=== PATIENT | female | born 1965 | race Caucasian/White ===

== ENCOUNTER 2018-09-17 17:31 | Emergency (ER) | payer OTHER, SELFPAY ==
[2018-09-17 17:38] VITALS: BP 92/47; PULSE 72; RESP 16; TEMP 36.8; O2SAT 97
--- NOTE | 2018-09-17 17:59 | ED.GENADUL_ITS ---
Discharge Plan Disposition Patient Disposition: HOME Condition: Stable Discharge Details Chief Complaint: Allergic Clinical Impression: Bite or sting by insect, Hypersensitivity reaction Primary Care Provider: Dawson Stephens ED Provider: Vikas Prado Home Meds and New Rx's Prescriptions: No Action meloxicam 15 mg Tablet 15 mg PO PRN PRNRF: 0 Discharge Instructions Instructions: Insect Bite or Sting (ED) Additional Instructions: Continue to apply ice and keep extremity elevated. You may continue to use Benadryl 1 to 2 tablets every 4 hours as needed for itching continue to monitor site of insect bite or sting. Return immediately to the emergency department for any new or significant worsening of symptoms, difficulty breathing or swelling to your lips tongue face or mouth. Otherwise you may follow-up with your primary care provider as needed Referrals: Primary Care Provider [Outside] (As needed for reassessment) Discharge Data Discharge Date/Time-TO BE ENTERED AT DEPARTURE: 09/17/18 18:13 Medical Decision Making Bee sting right lower extremity, immediate redness and swelling after it occurred which redness and swelling has continued throughout today. Patient states that itching and on fire and due to swelling she has noted some sensation of numbness tingling to her toes. Physical exam shows moderate non-pitting edema to the right lower ankle with surrounding erythema. Patient does have sensation and cap refill is intact distal to area of insect bite or sting. Patient is unsure of what stung or bit her. Patient has no systemic symptoms. Given clinical course I doubt this is infected but more a hypersensitivity reaction to either a sting or possibly a black fly bite given amount of swelling and edema. I do not feel that patient needs epinephrine at this time but steroid course would be of benefit. Patient was encouraged to continue to apply ice, use Benadryl, and was given single dose of Zantac in the emergency department. Return precautions were discussed after discussion of diagnosis and plan of care patient has no further needs, questions, or concerns and states clear understanding to return to the emergency department for any worsening symptoms. HPI General Mode of arrival: ambulatory . Date/Time Provider Initiated Documentation: 09/17/18 17:37 . Limitations to Documentation: no limitations . Information obtained by: patient and RN notes reviewed . History of Present Illness 53 year old F presents to the emergency department with the chief complaint of bee sting / bug bite right ankle , described as moderate, with intensity rated at 6. Quality is described as aching, and is localized to the right and lower extremity. Patient started experiencing this day(s) (1) and it has been constant. Patient notes no other symptoms.. Patient did receive the following treatments prior to arrival, other (3 doses of Benadryl) Related Data Home Medications Medication Instructions Recorded Confirmed meloxicam 15 mg PO PRN PRN 09/17/18 09/17/18 Allergies Allergy/AdvReac Type Severity Reaction Status Date / Time No Known Allergies Allergy Unverified 09/17/18 17:42 General Stated Complaint: Allergic ALPA: 4 Review of Systems Constitutional Denies fever(s) ENT Denies lip swelling, Denies throat swelling and Denies tongue swelling Cardiovascular Denies chest pain and Denies dyspnea Respiratory Denies dyspnea Integumentary/Breasts Reports as per HPI Allergic/Immunologic Denies lip swelling, Denies throat swelling and Denies tongue swelling [facility] Medical History (Updated 09/17/18 @ 17:42 by Valerie Chung) Herniated nucleus pulposus, L4-5 (Acute) Social History Smoking/Tobacco Use Status: Current every day Alcohol Intake: never Drug use: Never Substance use type: does not use Do you feel safe at home: Yes Do you feel safe in your relationship?: Yes Exam Const General: cooperative, no acute distress and not ill appearing Orientation: alert, awake and oriented x3 HENMT Face and sinus: normal facial exam Resp Effort & Inspection: normal respiratory effort, able to speak in complete sentences and no respiratory distress Cardio Rate: regular rate Rhythm: regular rhythm Heart Sounds: S1 normal and S2 normal Extrem General: normal exam except as noted Right lower extremity: lower leg Details: normal to inspection; no erythema and no tenderness, ankle Details: swelling Details: diffusely and normal ROM; no unusual warmth and foot Details: normal capillary refill, normal to inspection and toes with normal ROM Course Vital Signs Temperature 36.8 C 09/17/18 17:38 Pulse 72 09/17/18 17:38 Respiratory Rate 16 09/17/18 17:38 Blood Pressure 92/47 L 09/17/18 17:38 Pulse Oximetry 97 09/17/18 17:38 Temperature 36.8 C 09/17/18 17:38 Pulse 72 09/17/18 17:38 Respiratory Rate 16 09/17/18 17:38 Respiratory Effort Non-Labored 09/17/18 17:41 Blood Pressure 92/47 L 09/17/18 17:38 Pulse Oximetry 97 09/17/18 17:38 Pain Level 6 09/17/18 17:38
[2018-09-17] MEDS: predniSONE 20 MG TAB 40 MG PO (18:13)
== END 2018-09-17 18:13 | disposition home or self-care (01) ==
PROVIDERS: Emergency Provider Nurse Practitioner Family
DX: T63.441A Toxic effect of venom of bees, accidental (unintentional), initial encounter (principal); L29.8 Other pruritus; R60.9 Edema, unspecified
CPT/HCPCS: 99283; J7512

== ENCOUNTER 2020-06-30 08:33 | Emergency (ER) | payer OTHER, SELFPAY ==
[2020-06-30 08:38] VITALS: BP 116/73; PULSE 72; RESP 16; TEMP 36.4; O2SAT 98
--- NOTE | 2020-06-30 08:45 | DI.RAD_ITS ---
Exam(s) XR FOOT RT COMPLETE EXAM: XR FOOT RT COMPLETE CLINICAL HISTORY: stepped on by horse. TECHNIQUE: 2D digital imaging was performed. COMPARISON: No exams were available for comparison FINDINGS: No evidence of obvious fractures nor diastasis of the Lisfranc joint. However, on the oblique view t here is a subtle transverse linear lucency at the base of the 3rd metatarsal which may represent a no ndisplaced fracture at this site. No other fractures identified. Tiny inferior calcaneal spur is no darryn. Hallux valgus evident. IMPRESSION: Possible subtle nondisplaced fracture base of the 3rd metatarsal. Correlation with site of tendernes s is recommended. DATA REPOSITORY: RADIATION DOSE DELIVERED:
--- NOTE | 2020-06-30 08:45 | DI.RAD_ITS ---
Exam(s) XR TIB/FIB RT EXAM: XR TIB/FIB RT CLINICAL HISTORY: kicked by horse. TECHNIQUE: 2D digital imaging was performed. COMPARISON: No exams were available for comparison FINDINGS: There is no evidence of acute fracture nor dislocation. No widening of the ankle mortise. Small inf erior calcaneal spur is noted. Dermal/subdermal calcifications are noted anteriorly in the calf. IMPRESSION: DATA REPOSITORY: RADIATION DOSE DELIVERED:
--- NOTE | 2020-06-30 08:58 | ED.GENADUL_ITS ---
Discharge Plan Disposition Patient Disposition: HOME Condition: Stable Discharge Details Clinical Impression: Contusion of foot, Contusion of right lower leg Primary Care Provider: Kat,Local ED Provider: Octaviano Méndez Home Meds and New Rx's Prescriptions: Continued pregabalin 25 mg capsule 25 mg PO BID RF: 0 Discharge Instructions Instructions: Contusion in Adults (ED), Foot Contusion (ED) Additional Instructions: X-ray of your foot and tib-fib did not reveal any obvious fracture or dislocation. You do have some degenerative changes at the base of your first toe. Splinting and crushing was declined. I recommend using [id number] Tylenol and/or Motrin as directed for discomfort. Rest, elevate, cool and/or warm compresses every 2 hours for 20 days. Please watch for new or worsening symptoms and return to the ER for any concerns. Medical Decision Making 55-year-old female who was stepped on and kicked in the right lower extremity by a horse 8 days ago. Reports pain swelling and ecchymosis. Denies numbness, tingling, weakness. Clinically this appears to be a contusion. She has only been intermittently taking anti-inflammatory medication. She has been weightbearing the entire time. Discussed options. Will obtain x-ray of tib-fib as well as the foot. Ankle appears slightly ecchymotic this is likely from the contusion over the tib-fib, ankle is nontender. Neuro, vascular, tendon intact. Normal dorsalis pedal pulse and capillary refill. Negative Homans' sign. X-ray of right tib-fib reviewed by me and confirmed by radiology as negative. X-ray of right foot reveals mild degenerative changes at the first MTP joint, no fracture. Discussed x-ray findings with patient. She is relieved. Declined splinting or crutches. We discussed conservative therapy, resting, [id number] anti- inflammatory medication, cool and/or warm compresses. Standard discharge and return precautions given. Medical Records Medical records reviewed: Yes I reviewed the patient's medical records. HPI General Mode of arrival: ambulatory . Date/Time Provider Initiated Documentation: 06/30/20 08:34 . Limitations to Documentation: no limitations . Information obtained by: patient . HPI Narrative: This is a 55-year-old female, past medical history that includes herniated disc at L4-L5, presents for right lower leg and foot injury that occurred last Wednesday. She states that her foot was stepped on by a horse and then she was subsequently kicked in the lower leg. At the time she did not notice significant pain but did notice moderate swelling, bruising. Denies any other injury. Denies numbness, tingling, weakness. She states 3 days ago she had increased pain at the site where she was kicked. Reports that she has pain in her foot with dorsi and plantar flexion. She has taken Motrin at bedtime over the past couple of nights. Denies any calf pain or swelling. No history of DVT or PE. No chest pain or shortness of breath. Patient states the pain is mild to moderate at rest, worse with movement or ambulation. She states that the pain is worse at the site of the initial kicking, distal anterior tibia, and in the webbing between her first and second toe. Reports that the ankle is not painful, there is no initial swelling or ecchymosis across the ankle but over the time, gravity has pulled swelling and ecchymosis down. Related Data Home Medications Medication Instructions Recorded Confirmed pregabalin 25 mg PO BID 06/30/20 06/30/20 Allergies Allergy/AdvReac Type Severity Reaction Status Date / Time No Known Allergies Allergy Unverified 06/30/20 08:44 General Stated Complaint: Orthopedic ALPA: 4 Review of Systems Constitutional Constitutional: Denies fever(s) and Denies weakness Cardiovascular Cardiovascular: Denies chest pain and Denies dyspnea Respiratory Respiratory: Denies dyspnea Musculoskeletal Musculoskeletal: Denies deformity, Denies arthralgias, Denies numbness, Reports stiffness and Denies tingling Integumentary/Breasts Skin/Breast: Denies erythema Neurologic Neurologic: Denies numbness, Denies tingling and Denies weakness [facility] Medical History Herniated nucleus pulposus, L4-5 Social History Smoking/Tobacco Use Status: Former Tobacco Use Smoking risk assessment performed?: Yes Alcohol Intake: current Alcohol Intake frequency: holidays/special occasions only Drug use: Never Substance use type: does not use Do you feel safe at home: Yes Do you feel safe in your relationship?: Yes Exam Const General: cooperative, healthy appearing, comfortable and no acute distress Orientation: alert and awake [facility] Head: normal to inspection, normocephalic and atraumatic Eyes General: appearance normal, both eyes and all related structures Conjunctivae: conjunctivae normal Neck Neck: normal visual inspection, trachea midline and supple Resp Effort & Inspection: normal respiratory effort and able to speak in complete sentences Cardio Rate: regular rate Rhythm: regular rhythm Skin General skin exam: no rashes or lesions noted Neuro General: patient alert, patient awake, moves all extremities and no focal motor deficits Cognition: normal cognition Speech: speech normal Gait: antalgic (Minimally) Motor: muscle tone normal throughout and strength 5/5 throughout Sensory Exam: no sensory deficits noted Extrem General: full ROM and capillary refill normal Right lower extremity: normal capillary refill, hip/thigh Details: normal to inspection and normal ROM; no tenderness and no swelling, knee Details: normal to inspection and normal ROM; no tenderness and no swelling, lower leg Details: tenderness and ecchymosis, ankle Details: ecchymosis; no tenderness and no swelling and foot Details: normal capillary refill, normal to inspection, tenderness, toes with normal ROM, no edema, ecchymosis and vascular exam Details: dorsalis pedis pulse present and normal capillary refill Upper/lower leg/hip images: 1. Contusion, tenderness. Skin intact. Ecchymosis and multiple stages of healing. Neuro, vascular, tendon intact. 2. Diffuse mild ecchymosis however there is no swelling or tenderness over the ankle whatsoever. Full dorsi and plantar flexion. Ankle/foot/toe images: 1. There is diffuse mild discomfort between the first and second toe and the webbing. Neuro, vascular, tendon intact. Skin intact. Normal capillary refill. Psych Appearance: grossly normal Mental Status: mental status grossly normal Course Vital Signs Vital signs: Vital Signs Temperature 36.4 C 06/30/20 08:38 Pulse 72 06/30/20 08:38 Respiratory Rate 16 06/30/20 08:38 Blood Pressure 116/73 06/30/20 08:38 Pulse Oximetry 98 06/30/20 08:38 Temperature 36.4 C 06/30/20 08:38 Temperature Source Skin 06/30/20 08:38 Pulse 72 06/30/20 08:38 Respiratory Rate 16 06/30/20 08:38 Respiratory Effort 06/30/20 08:38 Blood Pressure 116/73 06/30/20 08:38 Blood Pressure Position Sitting 06/30/20 08:38 Pulse Oximetry 98 06/30/20 08:38 Oxygen Delivery Method Room Air 06/30/20 08:38 Oxygen Flow Rate 0 06/30/20 08:38 Pain Level 8 06/30/20 08:50
--- NOTE | 2020-06-30 09:52 | DI.VRAD_ITS ---
PROCEDURE INFORMATION: Exam: XR Right Foot Exam date and time: 06/30/2020 8:58 AM Age: 55 years old Clinical indication: Pain; Right; Patient HX: Trauma, horse stepped on foot TECHNIQUE: Imaging protocol: XR Right foot. Views: 3 or more views. COMPARISON: No relevant prior studies available. FINDINGS: Bones/joints: No acute fracture. Mild degenerative changes of the 1st metatarsophalangeal joint. Mild hallux valgus and bunion deformity. No ankle joint effusion. Soft tissues: Unremarkable. IMPRESSION: 1. Mild bunion deformity. 2. Mild hallux valgus. 3. Mild degenerative changes at the 1st metatarsophalangeal joint. 4. No acute fracture. Dictated and Authenticated by: Vaughn Gimenez MD. Ordering:GISEL Brumfield MD
--- NOTE | 2020-06-30 10:01 | DI.VRAD_ITS ---
PROCEDURE INFORMATION: Exam: XR Right Tibia and Fibula Exam date and time: 06/30/2020 8:58 AM Age: 55 years old Clinical indication: Pain; Right; Patient HX: Lower leg bruise. Blunt trauma TECHNIQUE: Imaging protocol: XR Right tibia and fibula. Views: 2 views. COMPARISON: No relevant prior studies available. FINDINGS: Bones/joints: Normal. Soft tissues: Dermal calcifications. IMPRESSION: No acute findings. Dictated and Authenticated by: Vaughn Gimenez MD. Ordering:GISEL Brumfield MD
== END 2020-06-30 10:09 | disposition home or self-care (01) ==
PROVIDERS: Emergency Provider Physician Assistant
DX: S80.11XA Contusion of right lower leg, initial encounter (principal); W55.12XA Struck by horse, initial encounter
CPT/HCPCS: 99284; 73590; 73630; 99283

== ENCOUNTER 2021-01-02 14:58 | Outpatient (CLI) | payer OTHER, SELFPAY ==
--- NOTE | 2021-01-02 11:50 | DI.RAD_ITS ---
Exam(s) XR LUMBAR SPINE AP, LAT EXAM: XR LUMBAR SPINE AP, LAT CLINICAL HISTORY: vertebral alignment M54.50 LOW BACK PAIN. TECHNIQUE: 2D digital imaging was performed. COMPARISON: No exams were available for comparison FINDINGS: AP and lateral views of the lumbosacral spine reveal 5 vertebrae of lumbar configuration with no evid ence of fracture, listhesis, or pars defects. No scoliosis. There is disc space fusion device at L5-S1 level. Appears to be in satisfactory position. No retropu lsion. Disc space is maintained at this level and levels above. Mild facet joint degenerative tomas es. Sacroiliac joints appear unremarkable here. Visualized hip joint spaces appears normal. No osse ous lesions. Bone density is age-appropriate. IMPRESSION: Satisfactory appearance. DATA REPOSITORY: RADIATION DOSE DELIVERED:
== END 2021-01-02 15:18 ==
PROVIDERS: PCP Family Medicine; Visit Provider Nurse Practitioner Family
DX: M54.59 Other low back pain (principal); Z98.890 Other specified postprocedural states
CPT/HCPCS: 72100

== ENCOUNTER 2021-01-27 09:50 | Outpatient (CLI) | payer OTHER, SELFPAY ==
--- NOTE | 2021-01-27 09:30 | DI.RAD_ITS ---
Exam(s) XR LUMBAR SPINE AP, LAT EXAM: XR LUMBAR SPINE AP, LAT CLINICAL HISTORY: follow up recent back surgery/fusion, chronic LBP, M54.50, G29.89. TECHNIQUE: 2D digital imaging was performed. COMPARISON: CR XR LUMBAR SPINE AP, LAT from 01/02/2021 FINDINGS: Again noted is an L5-S1 level disc space fusion device which appears to be in satisfactory position. No migration and no radiographic evidence of osteomyelitis. Appears similar to the prior radiograph s 01/02/2021. Disc space height is maintained at this level and there is no significant narrowing di sc spaces above this level. There is no scoliosis. Sacroiliac joints appear unremarkable. IMPRESSION: Stable appearance. DATA REPOSITORY: RADIATION DOSE DELIVERED:
== END 2021-01-27 10:10 ==
PROVIDERS: PCP Family Medicine; Visit Provider Family Medicine
DX: M54.59 Other low back pain (principal); G89.29 Other chronic pain; Z98.1 Arthrodesis status
CPT/HCPCS: 72100

== ENCOUNTER 2021-03-10 09:00 | Outpatient (CLI) | payer OTHER, SELFPAY ==
--- NOTE | 2021-03-10 | DI.RAD_ITS ---
Exam(s) XR LUMBAR SPINE AP, LAT EXAM: XR LUMBAR SPINE AP, LAT CLINICAL HISTORY: S/P LUMBAR SPINAL FUSION Z98.1. TECHNIQUE: 2D digital imaging was performed. COMPARISON: CR XR LUMBAR SPINE AP, LAT from 01/27/2021 FINDINGS: Again noted is an L5-S1 disc space fusion device which appears stable in position. No evidence encro achment upon spinal canal. Mild anterolisthesis of L4 upon L5 noted today's images, approximately 2 millimeters. No disc space narrowing at this level. No obvious facet arthropathy. IMPRESSION: Stable appearance of L5-S1 hardware. DATA REPOSITORY: RADIATION DOSE DELIVERED:
== END 2021-03-10 09:20 ==
PROVIDERS: PCP Family Medicine
DX: M43.17 Spondylolisthesis, lumbosacral region (principal); Z98.1 Arthrodesis status
CPT/HCPCS: 72100

== ENCOUNTER 2021-03-28 09:50 | Emergency (ER) | payer OTHER, SELFPAY ==
[2021-03-28] VITALS (19 sets, daily range): BP systolic 109–117; BP diastolic 57–72; PULSE 59–82; RESP 11–21; TEMP 36.5; O2SAT 96–99
--- NOTE | 2021-03-28 10:30 | RT.EKG_ITS ---
APPROVED REPORT Exam: Resting ECG Reason for Exam: palpitations Patient Location: E HR:68 bpm ECG Measurements Heart Rate 68 AXIS [place] 168 P 76 QRSd 71 QRS 36 QT 402 T 37 QTc 429 Conclusion Sinus rhythm...normal P axis, V-rate 60- 99
[2021-03-28 10:59] LABS: Abs Immature Grans 0.01 10^3/uL (0.0-0.06); Absolute Basophil Count 0.02 10^3/uL (0.0-0.2); Absolute Eosinophil Count 0.09 10^3/uL (0.0-0.7); Absolute Lymphocyte Count 3.28 10^3/uL (1.2-3.4); Absolute Monocyte Count 0.43 10^3/uL (0.1-0.8); Absolute Neutrophil Count 1.87 10^3/uL (1.2-6.7); Basophils % 0.4; Eosinophils % 1.6; HCT 43.3 % (36.0-46.0); HGB 14.3 g/dL (11.2-15.7); Immature Grans % 0.2; Lymphocytes % 57.5; MCH 30.8 pg (27.0-33.0); MCV 93.1 fL (80-95); MPV 8.9 fL (8.0-11.0); Monocytes % 7.5; Neutrophils % 32.8; Nucleated RBC 0 %; Platelet Count 292 10^3/uL (130-400); RBC 4.65 10^6/uL (3.93-5.22); RDW 12.2 % (11.7-14.6); RDW-SD 42.1 fL
[2021-03-28 11:21] LABS: ALT 23 U/L (14-59); AST 19 U/L (15-37); Albumin 3.8 g/dL (3.4-5.0); Alkaline Phosphatase 71 U/L (46-116); Anion Gap 6.9 mmol/L (3-11); BUN 15 mg/dL (7-18); Bilirubin, Total 0.4 mg/dL (0.2-1.0); CO2 27.1 mmol/L (21.0-32.0); CREATININE 0.8 mg/dL (0.55-1.02); Calcium 8.9 mg/dL (8.5-10.1); Chloride 106 mmol/L (98-107); Glucose 94 mg/dL (74-106); Magnesium 2.2 mg/dL (1.8-2.4); NT-proBNP 76 pg/mL (<300); Potassium 3.8 mmol/L (3.5-5.1); Sodium 140 mmol/L (136-145); TSH (W/Ref FT4) 1.31 uIU/mL (0.36-3.74); Total Protein 7.1 g/dL (6.4-8.2); Troponin I < 50 ng/L (<or=60)
--- NOTE | 2021-03-28 11:30 | DI.US_ITS ---
Exam(s) US EXTREMITY VENOUS BI EXAM: US EXTREMITY VENOUS BI CLINICAL HISTORY: Leg pain and swelling. TECHNIQUE: Bilateral lower extremity venous ultrasound performed using grayscale, color-flow, and sp ectral Doppler analysis. COMPARISON: No exams were available for comparison FINDINGS: The bilateral common femoral, femoral and popliteal veins demonstrate normal compressibility, augment ation, and color Doppler. The posterior tibial veins are patent. The saphenofemoral junctions are unr emarkable. There is a 5.2 x 2.5 x 3.8 cm complex fluid collection adjacent to the posterior medial le ft knee. This may represent a popliteal cyst. There is a 1.6 x 0.6 x 1.6 cm fluid collection in the right popliteal fossa likely reflecting a Patel cyst. The soft tissues are unremarkable. IMPRESSION: Right: Negative for DVT Left: Negative for DVT DATA REPOSITORY:
--- NOTE | 2021-03-28 11:30 | DI.CT_ITS ---
Exam(s) CT CHEST PE CTA EXAM: CT CHEST PE CTA CLINICAL HISTORY: palpations, elevated Dimmer. TECHNIQUE: Imaging Protocol: Axial CT angiography was performed with multi-slice acquisition and mu lti-planar and/or 3D reconstructions. CONTRAST MATERIAL: Intravenous: Omnipaque 350 Contrast volume:68 mL COMPARISON: No exams were available for comparison FINDINGS: There is poor inspiration. Tracheobronchial tree: Patent where visualized. Pulmonary parenchyma: Atelectatic changes are seen in the lungs due to low lung volumes and poor insp iration. No focal consolidating infiltrates. Pulmonary Arteries: No evidence of filling defect to suggest pulmonary emboli. Mediastinum and Candy: No dominant adenopathy or fluid collection. The esophagus is unremarkable. Visualized thyroid gland: Unremarkable. Pleura: No effusion or pneumothorax. Heart: The heart is not dilated. No coronary artery calcifications are seen. No pericardial effusion. Aorta: Thoracic aorta non-dilated. No evidence of dissection. Upper abdomen: Unremarkable. Soft tissues: Unremarkable. Bones: Within normal limits for the patient's age. IMPRESSION: 1. No evidence of pulmonary embolism, thoracic aortic dissection or aneurysm. 2. Results of this exam have been verbally communicated with provider. RADIATION DOSE DELIVERED: 375.38mGy.cm Total DLP DATA REPOSITORY: All CT scans at this facility are submitted to the National Radiology Data Registry (NRDR) Dose Index Registry (DIR) with the [employer] ([employer]). RADIATION OPTIMIZATION: All CT scans at this facility use at least one of these dose optimization te chniques: automated exposure control; mA and/or kV adjustment per patient size (includes targeted exa ms where dose is matched to clinical indication); or iterative reconstruction.
[2021-03-28 11:31] LABS: D-Dimer 559 ng/mlFEU (<500)
--- NOTE | 2021-03-28 12:02 | NUR.NOTE ---
Nursing Note: Pt to radiology via stretcher for exams with tech, no current complaints/acute distress noted at this time.
[2021-03-28] MEDS: Omnipaque 350 MG/ML 100 ML BTL 68 ML IJ (12:11)
--- NOTE | 2021-03-28 12:26 | NUR.NOTE ---
Nursing Note: Pt return from radiology, monitors continued, no new complaints, requesting lunch, provider notified, lunch ordered.
--- NOTE | 2021-03-28 13:14 | ED.GENADUL_ITS ---
Discharge Plan Disposition Patient Disposition: HOME Condition: Stable Discharge Details Clinical Impression: History of palpitations Primary Care Provider: Nasim Hamilton ED Provider: Vikas Prado Home Meds and New Rx's Prescriptions: Continued cyclobenzaprine 10 mg tablet 10 mg PO TID PRN (Reason: muscle spasm) 0RF pregabalin 50 mg capsule 50 mg PO HS 0RF Discharge Instructions Instructions: Heart Palpitations (ED) Additional Instructions: As discussed at this time we have not found any emergency findings with our ev aluation. If you have any new or worsening symptoms, return of your palpitations, or any change in your condition feel free to return to the emergency department for further evaluation. Otherwise it is recommended that you follow-up with your primary care provider for reassessment preferably in the next week. Referrals: Nasim Hamilton MD [Primary Care Provider] - Discharge Data Discharge Date/Time-TO BE ENTERED AT DEPARTURE: 03/28/21 13:55 Medical Decision Making Patient presenting to the emergency department for chief complaint of palpitations with activity and leg swelling. Patient was initially evaluated at primary care office which referred her to the emergency department. Patient rep orts elevated heart rate after exercise that lasted throughout the majority of the day and then subsided on its own. Patient is planing of bilateral leg pain from the calf radiating upwards. Patient did have surgery 3 months ago on her back. Physical exam shows well-appearing patient with no signs of acute distress. Normal cardiac and rest jean-claude exam. Patient does have mild to moderate tenderness of bilateral calves and proximal thighs. Plan to check labs including D-dimer. Review of labs is unremarkable except for elevated D-dimer. Given this I did order chest CTA for PE and lower extremity ultrasounds. Chest CT is negative for pulmonary embolism or acute findings. Lower extremity ultrasound show a basic Patel's cyst and some fluid collection which is more than likely due to avidity or injury but no signs of thrombosis is noted. I did discuss with patient these findings. At this time I do not feel that further evaluation is needed. Referred patient back to primary care provider and did consider Holter monitor but given that this single event happened more than 2 weeks ago with no other further reported event I feel that primary care can order cardiac monitoring if this occurs again. After discussion of diagnosis and plan of care patient has no further needs, questions, or concerns and states clear understanding to return to the emergency department for any worsening symptoms. Lab Data Labs: Laboratory Tests Range/Units 03/28/21 03/28/21 03/28/21 10:50 10:50 10:50 WBC (4.4-10.8) 10^3/uL 5.70 RBC (3.93-5.22) 10^6/uL 4.65 Hgb (11.2-15.7) g/dL 14.3 Hct (36.0-46.0) % 43.3 MCV (80-95) fL 93.1 MCH (27.0-33.0) pg 30.8 MCHC (32.0-36.0) % 33.0 RDW (11.7-14.6) % 12.2 Plt Count (130-400) 10^3/uL 292 MPV (8.0-11.0) fL 8.9 Immature Gran % 0.2 Neutrophils % 32.8 Lymphocytes % 57.5 Monocytes % 7.5 Eosinophils % 1.6 Basophils % 0.4 Nucleated RBC % % 0 Absolute Neutrophils (1.2-6.7) 10^3/uL 1.87 Absolute Lymphocytes (1.2-3.4) 10^3/uL 3.28 Absolute Monocytes (0.1-0.8) 10^3/uL 0.43 Absolute Eosinophils (0.0-0.7) 10^3/uL 0.09 Absolute Basophils (0.0-0.2) 10^3/uL 0.02 D-Dimer (<500) ng/mlFEU 559 H Sodium (136-145) mmol/L 140 Potassium (3.5-5.1) mmol/L 3.8 Chloride (98-107) mmol/L 106 Carbon Dioxide (21.0-32.0) mmol/L 27.1 Anion Gap (3-11) mmol/L 6.9 BUN (7-18) mg/dL 15 Creatinine (0.55-1.02) mg/dL 0.8 Estimated GFR/1.73 m2 (mL/min/1.73m2) >= 60.00 Glucose (74-106) mg/dL 94 Calcium (8.5-10.1) mg/dL 8.9 Magnesium (1.8-2.4) mg/dL 2.2 Total Bilirubin (0.2-1.0) mg/dL 0.4 AST (15-37) U/L 19 ALT (14-59) U/L 23 Alkaline Phosphatase (46-116) U/L 71 Troponin I (<or=60) ng/L < 50 NT-Pro-B Natriuret Pep (<300) pg/mL 76 Total Protein (6.4-8.2) g/dL 7.1 Albumin (3.4-5.0) g/dL 3.8 TSH (0.36-3.74) uIU/mL 1.31 ECG Data Interpretation: Please see attending physician's full interpretation of EKG. No signs of STEMI. HPI General Mode of arrival: ambulatory . Date/Time Provider Initiated Documentation: 03/28/21 10:25 . Limitations to Documentation: no limitations . Information obtained by: patient . History of Present Illness 55 year old F presents to the emergency department with the chief complaint of Palpitations during exercise 2 weeks ago with continued leg pain., described as moderate, with intensity rated at 2. Quality is described as aching, and is localized to the lower extremity. Patient proximal. Patient started experiencing this week(s) (2) and it has been constant and intermittent. improves with No relieving factors improve symptom(s), Movement worsens symptoms . Patient notes denies cough, fever/chills, headaches and malaise. Patient did receive the following treatments prior to arrival, none Related Data Home Medications Medication Instructions Recorded Confirmed cyclobenzaprine 10 mg tablet 10 mg PO TID PRN tab 03/28/21 03/28/21 pregabalin 50 mg capsule 50 mg PO HS cap 03/28/21 03/28/21 Allergies Allergy/AdvReac Type Severity Reaction Status Date / Time No Known Allergies Allergy Verified 03/28/21 10:18 General Stated Complaint: Palpitatns ALPA: 3 Review of Systems Constitutional Constitutional: Denies chills, Denies fever(s) and Denies malaise Cardiovascular Cardiovascular: Reports as per HPI, Denies chest pain, Denies chest pain with activity, Denies syncope, Reports rapid heart rate, Denies irregular heart rhythm, Reports claudication, Reports leg edema, Denies lightheadedness and Denies dyspnea Respiratory Respiratory: Denies cough, Denies hemoptysis and Denies dyspnea Gastrointestinal Gastrointestinal: Denies abdominal pain, Denies nausea and Denies vomiting Musculoskeletal Musculoskeletal: Denies deformity, Denies numbness and Reports other (Bilateral leg pain) Neurologic Neurologic: Denies syncope and Denies numbness Psychiatric Psychiatric: Denies anxiety PFSH All Active Problems (Updated 03/28/21 @ 13:22 by Vikas Prado NP) History of palpitations (Acute) Chronic low back pain (Acute) 12/2020- s/p fusuon of l5-s1 disc in CT Medical History (Updated 03/28/21 @ 13:22 by Vikas Prado NP) Herniated nucleus pulposus, L4-5 Surgical History (Updated 01/27/21 @ 09:30 by Nasim Hamilton MD) History of lumbar surgery X 3 , remotely to L4-L5 with second surgery being a fusion 12/2020-lumbar fusion L3-G2-xejbjvlet in [place] Family History (Updated 01/08/21 @ 14:24 by Kim Luciano) Mother , 86 Depression Heart disease Father , 84 Diabetes Sister Depression Maternal Grandfather , 92 Diabetes Paternal Grandfather , 44 No problems noted. Maternal Grandmother , 84 No problems noted. Paternal Grandmother , 72 No problems noted. Social History (Updated 01/08/21 @ 14:23 by Kim Luciano) Smoking/Tobacco Use Status: Never Smoking risk assessment performed?: Yes Alcohol Intake: current Alcohol Intake frequency: a few times a month Alcohol type: wine Drug use: Never Substance use type: does not use Caregiver/Support person: No Household members: spouse Communication Needs: None Pets and animals: Yes Pets and animals: dog(s) and horse(s) Sexually active: Yes Do you think of yourself as: straight/heterosexual Current gender identity: female What is your relationship status?: How often do you talk on the phone with friends or family?: once per week How often do you get together with friends or relatives?: once per week How often do you attend caodaism or orthodoxy services?: 1-3 times per year Do you belong to any clubs or organized social groups?: no Panel score (0-1 are the most socially isolated patients): 1 What type of physical activity do you participate in: walking and bicycling Duration: 30-45 minutes/day Frequency: 1-2 times per week Mary/Restorationist: Episcopalian Special mary needs: No Seatbelt use: always Helmet use: Yes Helmet use: always Drive intox or ride w/intox auto carrier driver: No Do you feel safe at home: Yes Do you feel safe in your relationship?: Yes Exam Const General: cooperative, healthy appearing, comfortable, no acute distress, not diaphoretic and not ill appearing Nutritional Appearance: average body habitus Orientation: alert, awake and oriented x3 Limitations: mental status not altered Neck Neck: normal visual inspection, full ROM, trachea midline and no anterior neck swelling Carotids: normal carotid upstroke and no bruits Resp Effort & Inspection: normal respiratory effort and able to speak in complete sentences Auscultation: clear to auscultation bilaterally Cardio Jugular venous pressure: no JVD Palpation: normal PMI Rate: regular rate Rhythm: regular rhythm Heart Sounds: S1 normal, S2 normal, no click, no gallops, no murmurs and no rubs Pulses: radial pulses present bilaterally 2+, posterior tibial pulses present and dorsalis pedis present Skin General skin exam: no rashes or lesions noted Neuro General: patient alert, patient awake, patient oriented x3, tone normal and moves all extremities Extrem General: normal exam except as noted, calf tenderness bilaterally and no edema Course Vital Signs Vital signs: Vital Signs Temperature 36.5 C 03/28/21 10:15 Pulse 67 03/28/21 10:15 Respiratory Rate 14 03/28/21 10:15 Blood Pressure 109/71 03/28/21 10:15 Pulse Oximetry 98 03/28/21 10:15 Temperature 36.5 C 03/28/21 10:15 Temperature Source Temporal Artery Scan 03/28/21 10:15 Pulse 68 03/28/21 12:30 Pulse 70 03/28/21 12:31 Respiratory Rate 12 03/28/21 12:31 Respiratory Effort Non-Labored 03/28/21 10:19 Blood Pressure 117/61 03/28/21 12:30 Blood Pressure Mean 72 03/28/21 12:30 Blood Pressure Position Sitting 03/28/21 10:15 Pulse Oximetry 98 03/28/21 12:31 Oxygen Delivery Method Room Air 03/28/21 10:15 Oxygen Flow Rate 0 03/28/21 10:15 Pain Level 2 03/28/21 10:15 Lab/Test Results Lab/Test Results: Laboratory Tests Range/Units 03/28/21 03/28/21 03/28/21 10:50 10:50 10:50 WBC (4.4-10.8) 10^3/uL 5.70 RBC (3.93-5.22) 10^6/uL 4.65 Hgb (11.2-15.7) g/dL 14.3 Hct (36.0-46.0) % 43.3 MCV (80-95) fL 93.1 MCH (27.0-33.0) pg 30.8 MCHC (32.0-36.0) % 33.0 RDW (11.7-14.6) % 12.2 Plt Count (130-400) 10^3/uL 292 MPV (8.0-11.0) fL 8.9 Immature Gran % 0.2 Neutrophils % 32.8 Lymphocytes % 57.5 Monocytes % 7.5 Eosinophils % 1.6 Basophils % 0.4 Nucleated RBC % % 0 Absolute Neutrophils (1.2-6.7) 10^3/uL 1.87 Absolute Lymphocytes (1.2-3.4) 10^3/uL 3.28 Absolute Monocytes (0.1-0.8) 10^3/uL 0.43 Absolute Eosinophils (0.0-0.7) 10^3/uL 0.09 Absolute Basophils (0.0-0.2) 10^3/uL 0.02 D-Dimer (<500) ng/mlFEU 559 H Sodium (136-145) mmol/L 140 Potassium (3.5-5.1) mmol/L 3.8 Chloride (98-107) mmol/L 106 Carbon Dioxide (21.0-32.0) mmol/L 27.1 Anion Gap (3-11) mmol/L 6.9 BUN (7-18) mg/dL 15 Creatinine (0.55-1.02) mg/dL 0.8 Estimated GFR/1.73 m2 (mL/min/1.73m2) >= 60.00 Glucose (74-106) mg/dL 94 Calcium (8.5-10.1) mg/dL 8.9 Magnesium (1.8-2.4) mg/dL 2.2 Total Bilirubin (0.2-1.0) mg/dL 0.4 AST (15-37) U/L 19 ALT (14-59) U/L 23 Alkaline Phosphatase (46-116) U/L 71 Troponin I (<or=60) ng/L < 50 NT-Pro-B Natriuret Pep (<300) pg/mL 76 Total Protein (6.4-8.2) g/dL 7.1 Albumin (3.4-5.0) g/dL 3.8 TSH (0.36-3.74) uIU/mL 1.31
== END 2021-03-28 13:55 | disposition home or self-care (01) ==
PROVIDERS: Emergency Provider Nurse Practitioner Family; PCP Family Medicine
DX: R00.2 Palpitations (principal); R79.1 Abnormal coagulation profile; R22.43 Localized swelling, mass and lump, lower limb, bilateral
CPT/HCPCS: 36415; 71275; 80053; 93005; 99285; 83735; 83880; 84443; 84484; 85025; 85379; 93010; 93970; 99284; J3490

== ENCOUNTER 2021-04-17 03:32 | Outpatient (CLI) | payer OTHER, SELFPAY ==
--- NOTE | 2021-04-17 06:30 | DI.MAMMO_ITS ---
Exam(s) MAMMO SCREENING EXAM: MAMMO SCREENING CLINICAL HISTORY: screening.z12.39 TECHNIQUE: Mammograms were interpreted according to the usual protocol including computer analysis w [employer] CAD system, tomosynthesis and C-view imaging. COMPARISON: from 10/08/2020 [facility] in [place], [place] FINDINGS: The breasts are composed of scattered fibroglandular densities, Breast Density category B. No suspicious masses or suspicious microcalcifications are seen. No skin thickening or abnormal axillary lymph nodes are seen. There has been no significant change from prior exams. IMPRESSION: BI-RADS Category 1, Negative mammogram Yearly screening mammography is recommended. Breast Density - Category B, scattered fibroglandular densities. A negative radiographic report should not delay biopsy if a dominant or clinically suspicious mass is present. Up to ten percent of cancers are not identified on mammography. A negative report may reinforce clinical impression. Adenosis and dense breasts may obscure an underlying neoplasm. False positive reports average 6 to 10%. Patient will receive a letter notifying them of these results.
== END 2021-04-17 03:52 ==
PROVIDERS: PCP Family Medicine; Visit Provider Family Medicine
DX: Z12.31 Encounter for screening mammogram for malignant neoplasm of breast (principal)
CPT/HCPCS: 77063; 77067

== ENCOUNTER 2021-04-24 02:38 | Outpatient (CLI) | payer OTHER, SELFPAY ==
[2021-04-24 09:29] LABS: ESR 17 mm/hr (0-30)
[2021-04-24 10:48] LABS: Calculated LDL 173 mg/dL (<100); Cholesterol 276 mg/dL (<200); HDL Cholesterol 94 mg/dL (40-60); Triglyceride 47 mg/dL (<150)
[2021-04-24 11:05] LABS: Uric Acid 3.9 mg/dL (2.6-6.0)
[2021-04-24 18:22] LABS: Rheumatoid Factor <8.6 IU/mL (<12.0)
[2021-04-25 10:39] LABS: Lyme Ab w Rflx to Lyme Confirm Negative (Negative)
[2021-04-25 12:12] LABS: ANA Interpretation Positive (Negative); ANA Titer Pattern 1:80 Speckled
== END 2021-04-24 02:39 | disposition home or self-care (01) ==
LOC: LBO 02:39
PROVIDERS: PCP Family Medicine; Visit Provider Family Medicine
DX: Z00.00 Encounter for general adult medical examination without abnormal findings (principal); M25.59 Pain in other specified joint
CPT/HCPCS: 36415; 80061; 85652; 84550; 86038; 86431; 86618

== ENCOUNTER 2021-05-08 09:17 | Outpatient (REF) | payer OTHER, SELFPAY ==
--- NOTE | 2021-05-08 09:00 | PAPFT_PTH ---
PATIENT: Ekta Pastor LOC: [facility] U#:[id number] AGE/SX: 56/F ROOM: RE05/08/[address]: Michelle Roth : 1965 BED: DIS: 05/08/2021 SPEC #: [id number] RECD: 05/08/21 12:41 STATUS: ALPESH REYvonne #: [id number] RAEGAN: 05/08/21 09:[address]: Michelle Roth DEPT: [facility] Cytology RECD BY: Monet Salomon ENTERED: 05/08/21 12:41 SP TYPE: PAPFT OTHR DR: Radha Borrego Tissues: 1 - CX/ENDOCX FOR PAP SMEARS Procedures: PAP THIN PREP/[facility] Screening HPV DNA PROBE Comments: [id number]
== END 2021-05-08 09:18 | disposition home or self-care (01) ==
LOC: LBN 09:17
PROVIDERS: PCP Family Medicine; Visit Provider Obstetrics & Gynecology Gynecology
DX: Z12.4 Encounter for screening for malignant neoplasm of cervix (principal); Z11.51 Encounter for screening for human papillomavirus (HPV)
CPT/HCPCS: 88142; 87624

== ENCOUNTER 2021-05-23 02:52 | Outpatient (CLI) | payer OTHER, SELFPAY ==
[2021-05-27 12:53] LABS: SS-A Antibody 3.1 Units (<20.0); SS-B (La) Ab, IgG 1.5 Units (<20.0)
[2021-05-27 14:25] LABS: RNP Ab, IgG 1.4 Units (<20.0)
[2021-05-27 14:40] LABS: dsDNA Ab, IgG <12.3 IU/mL (<30.0)
== END 2021-05-23 02:53 | disposition home or self-care (01) ==
LOC: LBO 02:52
PROVIDERS: PCP Family Medicine; Visit Provider Family Medicine
DX: R76.8 Other specified abnormal immunological findings in serum (principal); M25.50 Pain in unspecified joint
CPT/HCPCS: 36415; 86225; 86235

== ENCOUNTER 2021-07-04 19:01 | Outpatient (REF) | payer OTHER, SELFPAY ==
[2021-07-04 20:56] LABS: Bilirubin Negative (Negative); Blood Trace-intact (Negative); Clarity Clear (Clear); Glucose Negative (Negative); Ketones Negative (Negative); Leukocyte Esterase Small (Negative); Nitrite Negative (Negative); Urobilinogen 0.2 EU/dL (Up TO 0.2)
[2021-07-04 21:02] LABS: Bacteria Rare HPF (Negative); C & S Indicated? No; Casts Negative LPF (Negative); Crystals Negative HPF (Negative); Epithelial Cells Few HPF (Negative); Mucus Negative (Negative); RBC 0-2 HPF (0-2)
== END 2021-07-04 19:02 | disposition home or self-care (01) ==
LOC: LBN 19:01
PROVIDERS: PCP Family Medicine; Visit Provider Physician Assistant
DX: R30.0 Dysuria (principal)
CPT/HCPCS: 81003; 81015

== ENCOUNTER 2021-08-12 12:54 | Emergency (ER) | payer OTHER, SELFPAY ==
[2021-08-12 12:57] VITALS: BP 120/71; PULSE 67; RESP 18; TEMP 36; O2SAT 98
--- NOTE | 2021-08-12 13:00 | DI.RAD_ITS ---
Exam(s) XR ANKLE LT COMPLETE EXAM: XR ANKLE LT COMPLETE CLINICAL HISTORY: twisted L ankle x 2, r/o fx TECHNIQUE: 2D digital imaging was performed of the left ankle. Three images were obtained. AP, lat eral and oblique views were obtained. COMPARISON: No exams were available for comparison FINDINGS: BONES: There is a tiny density at the tip of the medial malleolus which may represent a small avulsed fracture fragment. No bony destructive lesion is seen. JOINTS:The ankle mortise is normally aligned. SOFT TISSUE: Normal. IMPRESSION: Tiny density at the tip of the medial malleolus. A small avulsed fracture fragment cannot be exclude d. Please correlate with patient's site of pain. DATA REPOSITORY: RADIATION DOSE DELIVERED:
--- NOTE | 2021-08-12 13:00 | DI.RAD_ITS ---
Exam(s) XR FOOT LT COMPLETE EXAM: XR FOOT LT COMPLETE CLINICAL HISTORY: twisted L foot, r/o fx. TECHNIQUE: 2D digital imaging was performed of the left foot. Three images were obtained. AP, obli que and lateral views were obtained. COMPARISON: No exams were available for comparison FINDINGS: BONES: No acute fracture is present. No bony destructive lesion is seen. JOINTS: No dislocation present. SOFT TISSUE: Normal. IMPRESSION: No acute fracture or dislocation is present. DATA REPOSITORY: RADIATION DOSE DELIVERED:
--- NOTE | 2021-08-12 13:07 | ED.GENADUL_ITS ---
Discharge Plan Disposition Patient Disposition: HOME Condition: Stable Discharge Details Clinical Impression: Left ankle sprain Primary Care Provider: Radha Borrego ED Provider: Brandi Phillips Home Meds and New Rx's Prescriptions: Continued pregabalin [Lyrica] 50 mg capsule 25 mg PO QHS estradiol [Estrace] 0.01 % (0.1 mg/gram) cream 1 g vaginal .COMPLEX Qty: 42.5 5RF Rx Instructions: 1 g vaginal Nightly for 2 weeks then twice weekly cephalexin 500 mg capsule 500 mg PO QID Qty: 28 0RF trazodone 50 mg tablet 50 mg PO QHS PRN (Reason: sleep) Qty: 90 3RF Discharge Instructions Instructions: Ankle Sprain (ED) Additional Instructions: Your ankle x-ray showed a possible tiny avulsion fracture of your medial mall eolus which is your inner ankle bone. This may not be a fracture as you do not have pain in this area. You are being placed in a walking boot to help with compression and pain and if this is a possible fracture. The remainder of your imaging is unremarkable. It is recommended you follow-up with orthopedics for reevaluation. Rest, ice, and elevate the affected area as much as possible. Alternate tylenol and motrin as needed and directed for pain. Return immediately to the emergency department if you develop any worsening or new concerning symptoms. Referrals: David Banuelos MD [ [facility]FF [facility]YSICIAN] - Discharge Data Discharge Date/Time-TO BE ENTERED AT DEPARTURE: 08/12/21 14:33 Discharge Physician: Brandi Phillips Medical Decision Making 56-year-old female presents with left ankle pain after twisting her ankle 3 weeks ago then reinjuring her ankle with another twisting injury 1 week later presents with persistent left lateral ankle pain with no radiation of her legs for the past week. She has edema, ecchymosis and tenderness to the inferior and posterior lateral malleolus and tenderness to the lateral distal lower leg. There is no deformity and she has neurovascular intact. No tenderness to the proximal leg. Will refer x-rays. She declined medication here. Imaging revealed a question of a tiny avulsed fracture fracture at the tip of the medial malleolus. Patient has no pain in this area and so do not suspect fracture. Will place in a walking boot to help with support and pain. She declined crutches. Patient placed on follow-up list for reevaluation. Usual and customary return precautions given prior to discharge. Medical Records Medical records reviewed: Yes I reviewed the patient's medical records. Imaging Data Radiologic Study: Radiologist's impression: XR FOOT LT COMPLETE CLINICAL HISTORY: ? twisted L foot, r/o fx.? TECHNIQUE:? 2D digital imaging was performed of the left foot.? Three images were obtained.? AP, oblique and lateral views were obtained. COMPARISON:? No exams were available for comparison FINDINGS: BONES: No acute fracture is present. No bony destructive lesion is seen. JOINTS: No dislocation present. SOFT TISSUE: Normal. IMPRESSION: No acute fracture or dislocation is present.? XR ANKLE LT COMPLETE CLINICAL HISTORY:? twisted L ankle x 2, r/o fx TECHNIQUE:? 2D digital imaging was performed of the left ankle.? Three images were obtained.? AP, lateral and oblique views were obtained. COMPARISON:? No exams were available for comparison FINDINGS: BONES: There is a tiny density at the tip of the medial malleolus which may represent a small avulsed fracture fragment.? No bony destructive lesion is seen. JOINTS:The ankle mortise is normally aligned. SOFT TISSUE: Normal. IMPRESSION: Tiny density at the tip of the medial malleolus.? A small avulsed fracture fragment cannot be excluded.? Please correlate with patient's site of pain. ? XR TIB/FIB LT CLINICAL HISTORY: ? s/p twisting injury, r/o fx.? TECHNIQUE:? 2D digital imaging was performed of the left tibia and fibula. Two images were obtained.? AP and lateral views were obtained. COMPARISON:? No exams were available for comparison FINDINGS: BONES: A tiny densities again seen at the tip of the medial malleolus.? This may represent a tiny avulsed fracture fragment.? No bony destructive lesion is seen. Visualized portion of knee and ankle joints are otherwise unremarkable.? SOFT TISSUE: Normal. IMPRESSION: Question of a tiny avulsed fracture fragment at the tip of the medial malleolus.? HPI General Mode of arrival: ambulatory . Date/Time Provider Initiated Documentation: 08/12/21 13:02 . Limitations to Documentation: no limitations . Information obtained by: patient . HPI Narrative: Patient is a 56-year-old female presents with left ankle pain with no radiation to her left leg after twisting her ankle twice in the last 3 weeks. Patient states her initial injury was earlier this month when she was walking on steps and twisted her ankle and fell. She states she had significant swelling and bruising at that time and applied an ankle brace and then retwisted her ankle 1 week later. She states over the past week she has had pain radiating from her left lateral ankle up her left lateral leg. She denies any knee pain or injury. Related Data Home Medications Medication Instructions Recorded Confirmed estradiol 0.01% (0.1 mg/gram) 1 g vaginal .COMPLEX #42.5 grams 05/08/21 08/12/21 vaginal cream (Estrace) pregabalin 50 mg capsule (Lyrica) 25 mg PO QHS 05/08/21 07/05/21 cephalexin 500 mg capsule 500 mg PO QID #28 caps 07/04/21 07/04/21 trazodone 50 mg tablet 50 mg PO QHS PRN sleep #90 tabs 07/21/21 08/12/21 Previous Rx's Medication Instructions Recorded estradiol 0.01% (0.1 mg/gram) 1 g vaginal .COMPLEX #42.5 grams 05/08/21 vaginal cream (Estrace) cephalexin 500 mg capsule 500 mg PO QID #28 caps 07/04/21 trazodone 50 mg tablet 50 mg PO QHS PRN sleep #90 tabs 07/21/21 Allergies Allergy/AdvReac Type Severity Reaction Status Date / Time adhesive tape Allergy Unknown Skin Rash Unverified 08/12/21 13:00 General Stated Complaint: Orthopedic ALPA: 4 Review of Systems All systems reviewed & are unremarkable except as noted in HPI and below Constitutional Constitutional: Reports as per HPI, Denies chills and Denies fever(s) Eyes Eyes: Denies blurry vision ENT Ears, Nose, Mouth, and Throat: Denies dizziness, Denies sore throat and Denies throat swelling Cardiovascular Cardiovascular: Denies chest pain and Denies dyspnea Respiratory Respiratory: Denies cough and Denies dyspnea Gastrointestinal Gastrointestinal: Denies abdominal pain, Denies diarrhea and Denies vomiting Genitourinary Genitourinary: Denies hematuria and Denies dysuria Musculoskeletal Musculoskeletal: Denies back pain and Denies numbness Comments: L ankle pain Integumentary/Breasts Skin/Breast: Denies lesions and Denies rash Neurologic Neurologic: Denies dizziness, Denies localized weakness and Denies numbness Allergic/Immunologic Allergic/Immunologic: Denies throat swelling PFSH All Active Problems (Updated 08/12/21 @ 14:09 by Brandi Phillips DO) Left ankle sprain (Acute) Dyspareunia (Acute) Encourage patient increase use of estrogen to 0.5 g daily for 2 weeks then twice weekly Positive STACI (antinuclear antibody) (Acute ~04/25/21) 1:80, speckled pattern Lumbar disc herniation with radiculopathy (Acute) Acid reflux (Chronic) Spinal stenosis (Acute) Sprain of rotator cuff capsule (Acute) Pain in joint, shoulder region (Acute) Effusion of lower leg joint (Acute) Somatic dysfunction of pelvic region (Acute) Anxiety state (Acute) Somatic dysfunction of sacral region (Acute) Lumbago (Acute) Pain of right great toe (Acute) Insomnia secondary to chronic pain (Acute) Chronic low back pain (Acute) 12/2020- s/p fusuon of l5-s1 disc in CT Medical History Herniated nucleus pulposus, L4-5 Surgical History H/O arthroscopy of shoulder History of lumbar surgery X 3 , remotely to L4-L5 with second surgery being a fusion 12/2020-lumbar fusion [id number] in [place] Hx of appendectomy Hx of hand surgery finger as well Hx of tonsillectomy Family History Mother , 86 Depression Heart disease Father , 84 Diabetes Hyperlipidemia Sister Depression Maternal Grandfather , 92 Diabetes Paternal Grandfather , 44 No problems noted. Maternal Grandmother , 84 No problems noted. Paternal Grandmother , 72 No problems noted. 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 Pets and animals: dog(s) and horse(s) Sexually active: Yes Do you think of yourself as: straight/heterosexual Current gender identity: female What is your relationship status?: How often do you talk on the phone with friends or family?: once per week How often do you get together with friends or relatives?: once per week How often do you attend confucianism or voodoo services?: 1-3 times per year Do you belong to any clubs or organized social groups?: no Panel score (0-1 are the most socially isolated patients): 1 Duration: 15-30 minutes/day Frequency: 3-4 times per week Mary/Sabianist: Quaker Seatbelt use: always Helmet use: Yes Helmet use: always Drive intox 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/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 Do you feel safe at home: Yes Do you feel safe in your relationship?: Yes Female Reproductive History Menstrual Menopause type: natural Date of menopause: 02/15/17 History History 0 Para Hx # Term Pregnancies Multiple births Hx # Pregnancies Ectopic pregnancies AB induced Hx Number of Living Children AB spontaneous Exam Const General: cooperative, healthy appearing and no acute distress Orientation: alert, awake and oriented x3 HENMT Head: normal to inspection Mouth: oral mucosae normal Eyes General: appearance normal, both eyes and all related structures Neck Neck: normal visual inspection Resp Effort & Inspection: normal respiratory effort and able to speak in complete sentences Cardio Rate: regular rate Skin General skin exam: no rashes or lesions noted Neuro General: patient alert, patient awake and patient oriented x3 Motor: muscle tone normal throughout Extrem Ankle/foot/toe images: 1. Tenderness to palpation inferior and posterior Left lateral malleolus and left lateral distal leg. No medial malleolus, left 5th metatarsal or heel tenderness. No tenderness to palpation proximal leg. L DP/PT pulses intact. Psych Appearance: grossly normal Affect: normal affect Course Vital Signs Vital signs: Vital Signs Temperature 96.8 F L 08/12/21 12:57 Pulse 67 08/12/21 12:57 Respiratory Rate 18 08/12/21 12:57 Blood Pressure 120/71 08/12/21 12:57 Pulse Oximetry 98 08/12/21 12:57 Temperature 96.8 F L 08/12/21 12:57 Temperature Source Temporal Artery Scan 08/12/21 12:57 Pulse 67 08/12/21 12:57 Respiratory Rate 18 08/12/21 12:57 Respiratory Effort Non-Labored 08/12/21 13:02 Blood Pressure 120/71 08/12/21 12:57 Blood Pressure Position Sitting 08/12/21 12:57 Pulse Oximetry 98 08/12/21 12:57 Oxygen Delivery Method Room Air 08/12/21 12:57 Oxygen Flow Rate 0 08/12/21 12:57 PAWSS Have you Been Recently Intoxicated or Drunk Within the Last 30 days?: No Have you Ever Experienced Previous Episodes of Alcohol Withdrawal?: No Have you ever Experienced Withdrawal Seizures?: No Have you ever Experienced Delirium Tremens(DT)s?: No Have you ever undergone Alcohol Rehabilitation Treatment (i.e, inpt ot outpatient treatment programs)?: No Have you ever Experienced Blackouts?: No Have you ever Combined Alcohol with other Downers within the last 90 days?: No Have you ever Combined Alcohol with any other Substance of Abuse during the last 90 days?: No Positive Blood Alcohol level on Presentation? [PCS.BAL]: No Evidence of Increased Autonomic Activity (i.e. HR>120, tremor, sweating, agitation, nausea)?: No Result: 0
--- NOTE | 2021-08-12 13:30 | DI.RAD_ITS ---
Exam(s) XR TIB/FIB LT EXAM: XR TIB/FIB LT CLINICAL HISTORY: s/p twisting injury, r/o fx. TECHNIQUE: 2D digital imaging was performed of the left tibia and fibula. Two images were obtained. AP and lateral views were obtained. COMPARISON: No exams were available for comparison FINDINGS: BONES: A tiny densities again seen at the tip of the medial malleolus. This may represent a tiny avu lsed fracture fragment. No bony destructive lesion is seen. Visualized portion of knee and ankle mike nts are otherwise unremarkable. SOFT TISSUE: Normal. IMPRESSION: Question of a tiny avulsed fracture fragment at the tip of the medial malleolus. DATA REPOSITORY: RADIATION DOSE DELIVERED:
== END 2021-08-12 14:33 | disposition home or self-care (01) ==
PROVIDERS: Emergency Provider Physician Assistant; PCP Family Medicine
DX: S93.492A Sprain of other ligament of left ankle, initial encounter (principal); X50.1XXA Overexertion from prolonged static or awkward postures, initial encounter; Y99.0 Civilian activity done for income or pay
CPT/HCPCS: 29515; 99284; 73590; 73610; 73630; 99283

== ENCOUNTER 2021-11-03 10:00 | Outpatient (CLI) | payer OTHER, SELFPAY ==
--- NOTE | 2021-11-03 09:30 | DI.RAD_ITS ---
Exam(s) XR FOOT LT COMPLETE EXAM: XR FOOT LT COMPLETE CLINICAL HISTORY: R>L heel pain x 6 months M79.673 PAIN M72.2 PLANTER FASCIAL FIBROMATOSIS. TECHNIQUE: 2D digital imaging was performed. Three views. COMPARISON: CR XR FOOT LT COMPLETE from 08/12/2021 FINDINGS: BONES: No acute fracture is present. No bony destructive lesion is seen. There is a tiny plantar calc aneal spur. JOINTS: No dislocation present. No significant degenerative changes. SOFT TISSUE: Normal. IMPRESSION: Tiny plantar calcaneal spur. DATA REPOSITORY: RADIATION DOSE DELIVERED:
--- NOTE | 2021-11-03 09:30 | DI.RAD_ITS ---
Exam(s) XR FOOT RT COMPLETE EXAM: XR FOOT RT COMPLETE CLINICAL HISTORY: R>L heel pain x 6 months M72.2 PLANTER FASCIAL FIBROMATOSIS M79.673 PAIN. TECHNIQUE: 2D digital imaging was performed. Three views. COMPARISON: CR XR FOOT LT COMPLETE from 11/03/2021 FINDINGS: BONES: No acute fracture is present. No bony destructive lesion is seen. Tiny plantar calcaneal spur . JOINTS: No dislocation present. Mild degenerative changes 1st MTP joint. SOFT TISSUE: Normal. IMPRESSION: Mild degenerative changes 1st MTP joint and tiny plantar calcaneal spur. DATA REPOSITORY: RADIATION DOSE DELIVERED:
== END 2021-11-03 10:20 ==
LOC: DI 10:03
PROVIDERS: PCP Family Medicine; Visit Provider Podiatrist Foot & Ankle Surgery
DX: M72.2 Plantar fascial fibromatosis (principal); M19.071 Primary osteoarthritis, right ankle and foot; M77.32 Calcaneal spur, left foot
CPT/HCPCS: 73630

== ENCOUNTER 2021-11-24 11:51 | Outpatient (CLI) | payer OTHER, SELFPAY ==
[2021-11-24 12:37] LABS: ESR 4 mm/hr (0-30)
[2021-11-24 12:51] LABS: C-Reactive Protein 0.13 mg/dL (0.0-0.3)
[2021-11-24 18:10] LABS: Rheumatoid Factor <8.6 IU/mL (<12.0)
[2021-11-25 14:12] LABS: ANA Interpretation Positive (Negative); ANA Titer Pattern 1:80 Speckled
== END 2021-11-24 11:52 | disposition home or self-care (01) ==
LOC: LOS 11:53
PROVIDERS: PCP Family Medicine; Visit Provider Family Medicine
DX: R20.0 Anesthesia of skin (principal); R20.2 Paresthesia of skin; R76.8 Other specified abnormal immunological findings in serum
CPT/HCPCS: 36415; 85652; 86038; 86140; 86431

== ENCOUNTER 2022-03-11 02:06 | Outpatient (CLI) | payer OTHER, SELFPAY ==
[2022-03-11 12:37] LABS: ESR 3 mm/hr (0-30)
[2022-03-11 12:53] LABS: C-Reactive Protein < 0.05 mg/dL (0.0-0.3)
== END 2022-03-11 02:07 | disposition home or self-care (01) ==
LOC: LOS 02:07
PROVIDERS: PCP Family Medicine; Visit Provider Nurse Practitioner Family
DX: G56.03 Carpal tunnel syndrome, bilateral upper limbs (principal); R76.8 Other specified abnormal immunological findings in serum; R76.0 Raised antibody titer; M72.2 Plantar fascial fibromatosis; M79.18 Myalgia, other site
CPT/HCPCS: 36415; 85652; 86038; 86140; 86431

== ENCOUNTER 2022-03-20 08:15 | Emergency (ER) | payer OTHER, SELFPAY ==
[2022-03-20 08:18] VITALS: BP 102/73; PULSE 73; RESP 18; TEMP 36.6; O2SAT 98
--- NOTE | 2022-03-20 08:39 | ED.GENADUL_ITS ---
Discharge Plan Disposition Patient Disposition: Home Discharge Details Clinical Impression: Lumbago Primary Care Provider: Radha Borrego ED Provider: Ludwin Hickman Home Meds and New Rx's Prescriptions: Continued estradiol [Estrace] 0.01 % (0.1 mg/gram) cream 1 g vaginal .COMPLEX Qty: 42.5 5RF Rx Instructions: 1 g vaginal Nightly for 2 weeks then twice weekly trazodone 50 mg tablet 50 mg PO QHS Qty: 90 3RF duloxetine [Cymbalta] 30 mg capsule,delayed release(DR/EC) 30 mg PO DAILY pregabalin [Lyrica] 50 mg capsule 50 mg PO DAILY Discharge Instructions Instructions: Low Back Strain (ED) Additional Instructions: Please take Tylenol 650 mg every 6 hours for the pain as well as ibuprofen 400 mg every 8 hours. I would strongly recommend you get some [id number] lidocaine patches and use as directed. Please follow-up with primary doctor and orthopedic surgeon as planned Medical Decision Making 66-year-old lady status post spinal fusion over a year ago, who unfortunately slipped on ice and fell from sitting on her right lower back and buttocks. Presented to the emergency department proxy 1 hour after the injury complaining of low back pain. In worsening sciatica type symptoms. Patient is neurovascularly intact in the emergency department. She was given some Toradol for the pain. Given the trauma and history of surgery x-rays of the lumbar spine were obtained. LS series do not reveal any abnormalities that does confirm intact hardware. This point, patient will discharge with instructions to continue taking her medications as well as Tylenol Motrin. We had a early discussion regarding Tylenol Motrin which she states she does not take because she does not believe it works. HPI General Date/Time Provider Initiated Documentation: 03/20/22 08:39 . HPI Narrative: 56-year-old presented to the emergency department after having fallen approximately 1 hour ago. Her right foot slipped from under her on ice and she fell on her buttocks lower back mostly on the right. She is complaining of low back pain primarily on the right with a bandlike radiation across to the front. She is also complaining of exacerbation of her sciatic type pain. He has pain radiating to the posterior aspect of the right thigh. Her gait is antalgic and made worse by the fact that she also has plantar fasciitis on the right side. No incontinence. No paresthesias. No focal weakness Related Data Home Medications Medication Instructions Recorded Confirmed estradiol 0.01% (0.1 mg/gram) 1 g vaginal .COMPLEX #42.5 grams 05/08/21 03/20/22 vaginal cream (Estrace) trazodone 50 mg tablet 50 mg PO QHS #90 tabs 02/25/22 03/20/22 pregabalin 50 mg capsule (Lyrica) 50 mg PO DAILY 03/09/22 03/20/22 duloxetine 30 mg capsule,delayed 30 mg PO DAILY 03/11/22 03/20/22 release (Cymbalta) Previous Rx's Medication Instructions Recorded estradiol 0.01% (0.1 mg/gram) 1 g vaginal .COMPLEX #42.5 grams 05/08/21 vaginal cream (Estrace) trazodone 50 mg tablet 50 mg PO QHS #90 tabs 02/25/22 Allergies Allergy/AdvReac Type Severity Reaction Status Date / Time adhesive tape Allergy Unknown Skin Rash Unverified 03/20/22 08:26 General Stated Complaint: Nk/Back Pain ALPA: 4 Review of Systems Narrative: Constitutional negative for fevers and chills. Cardiovascular no palpitations respiratory no shortness of breath GI no nausea no vomiting, MSK see HPI skin intact, neuro see HPI PFSH All Active Problems (Updated 03/20/22 @ 09:40 by Ludwin Hickman MD) Chronic low back pain (Acute) 12/2020- s/p fusuon of l5-s1 disc in CT Insomnia secondary to chronic pain (Acute) Pain of right great toe (Acute) Lumbago (Acute) Somatic dysfunction of sacral region (Acute) Anxiety state (Acute) Somatic dysfunction of pelvic region (Acute) Effusion of lower leg joint (Acute) Pain in joint, shoulder region (Acute) Sprain of rotator cuff capsule (Acute) Spinal stenosis (Acute) Acid reflux (Chronic) Lumbar disc herniation with radiculopathy (Acute) Positive STACI (antinuclear antibody) (Acute ~04/25/21) 1:80, speckled pattern Dyspareunia (Acute) Encourage patient increase use of estrogen to 0.5 g daily for 2 weeks then twice weekly Plantar fasciitis (Acute) Bilateral carpal tunnel syndrome (Acute) Right lateral epicondylitis (Acute) Medical History Herniated nucleus pulposus, L4-5 Surgical History H/O arthroscopy of shoulder History of lumbar surgery X 3 , remotely to L4-L5 with second surgery being a fusion 12/2020-lumbar fusion [id number] in [place] Hx of appendectomy Hx of hand surgery finger as well Hx of tonsillectomy Family History Mother , 86 Depression Heart disease Father , 84 Diabetes Hyperlipidemia Sister Depression Maternal Grandfather , 92 Diabetes Paternal Grandfather , 44 No problems noted. Maternal Grandmother , 84 No problems noted. Paternal Grandmother , 72 No problems noted. 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 Pets and animals: dog(s) and horse(s) Sexually active: Yes Do you think of yourself as: straight/heterosexual Current gender identity: female What is your relationship status?: How often do you talk on the phone with friends or family?: once per week How often do you get together with friends or relatives?: once per week How often do you attend faith or holiness services?: 1-3 times per year Do you belong to any clubs or organized social groups?: no Panel score (0-1 are the most socially isolated patients): 1 Duration: 15-30 minutes/day Frequency: 3-4 times per week Mary/Gnosticist: Latter Day Seatbelt use: always Helmet use: Yes Helmet use: always Drive intox or ride w/intox 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 Able to get off the stretcher on her own without assistance. Ambulates with an antalgic gait favoring the right. Normocephalic atraumatic PERRLA EOMI MMM anicteric Respiratory normal work of breathing Cardiovascular normal cap refill Back. No midline tenderness. No step-off. Well-healed lumbar surgical scar wound. Discomfort on palpation on right lower back. Strength of lower extremities 5/5 bilaterally. DTRs 2+ equal bilaterally. Psych mildly anxious Course Vital Signs Vital signs: Vital Signs Temperature 36.6 C 03/20/22 08:18 Pulse 73 03/20/22 08:18 Respiratory Rate 18 03/20/22 08:18 Blood Pressure 102/73 03/20/22 08:18 Pulse Oximetry 98 03/20/22 08:18 Temperature 36.6 C 03/20/22 08:18 Temperature Source Temporal Artery Scan 03/20/22 08:18 Pulse 73 03/20/22 08:18 Respiratory Rate 18 03/20/22 08:18 Respiratory Effort Non-Labored 03/20/22 08:26 Blood Pressure 102/73 03/20/22 08:18 Blood Pressure Position Sitting 03/20/22 08:18 Pulse Oximetry 98 03/20/22 08:18 Oxygen Delivery Method Room Air 03/20/22 08:18 Oxygen Flow Rate 0 03/20/22 08:18 Pain Level 8 03/20/22 08:27 PAWSS Have you Been Recently Intoxicated or Drunk Within the Last 30 days?: No Have you Ever Experienced Previous Episodes of Alcohol Withdrawal?: No Have you ever Experienced Withdrawal Seizures?: No Have you ever Experienced Delirium Tremens(DT)s?: No Have you ever undergone Alcohol Rehabilitation Treatment (i.e, inpt ot outpatient treatment programs)?: No Have you ever Experienced Blackouts?: No Have you ever Combined Alcohol with other Downers within the last 90 days?: No Have you ever Combined Alcohol with any other Substance of Abuse during the last 90 days?: No Positive Blood Alcohol level on Presentation? [PCS.BAL]: No Evidence of Increased Autonomic Activity (i.e. HR>120, tremor, sweating, agitation, nausea)?: No Result: 0
[2022-03-20] MEDS: Ketorolac 30 MG/ML VIAL IM (08:51)
--- NOTE | 2022-03-20 09:04 | DI.RAD_ITS ---
Exam(s) XR LUMBAR SPINE AP, LAT EXAM: XR LUMBAR SPINE AP, LAT CLINICAL HISTORY: fall. TECHNIQUE: 2D digital imaging was performed. COMPARISON: CR XR LUMBAR SPINE AP, LAT from 03/10/2021 FINDINGS: Four views: The previously described L5-S1 intervertebral disc space hardware is again noted and appears stable. There is no evidence of acute fracture nor new listhesis. Disc spaces are maintained. No scoliosis. No osseous lesions. IMPRESSION: No fracture. Stable appearance of L5-S1 hardware without significant change from 03/10/2021. DATA REPOSITORY: RADIATION DOSE DELIVERED:
== END 2022-03-20 10:12 | disposition home or self-care (01) ==
PROVIDERS: Emergency Provider Emergency Medicine; PCP Family Medicine
DX: G89.11 Acute pain due to trauma (principal); M54.50 Low back pain, unspecified; W00.0XXA Fall on same level due to ice and snow, initial encounter
CPT/HCPCS: 96372; 99284; 72100; J1885

== ENCOUNTER 2022-03-20 10:31 | Outpatient (CLI) | payer OTHER, SELFPAY ==
[2022-03-20 19:44] LABS: Rheumatoid Factor <8.6 IU/mL (<12.0)
[2022-03-25 16:22] LABS: ANA Interpretation Negative (Negative)
== END 2022-03-20 10:32 | disposition home or self-care (01) ==
LOC: LBO 10:32
PROVIDERS: PCP Family Medicine; Visit Provider Family Medicine
DX: R76.8 Other specified abnormal immunological findings in serum (principal)
CPT/HCPCS: 36415; 86038; 86431

== ENCOUNTER 2022-05-08 01:38 | Outpatient (CLI) | payer OTHER, SELFPAY ==
--- NOTE | 2022-05-08 07:30 | DI.MAMMO_ITS ---
Exam(s) MAMMO SCREENING EXAM: MAMMO SCREENING CLINICAL HISTORY: screening,Z12,39 TECHNIQUE: Bilateral full field digital CC and MLO mammographic images were obtained with 3D tomosyn thesis and utilizing computer aided detection (CAD). COMPARISON: Available for comparison. FINDINGS: Masses/Architectural Distortion: None seen. Microcalcifications: No suspicious pleomorphic-type are seen. Skin Thickening/Nipple Retraction: None. IMPRESSION: 1. No significant interval change with no specific features of malignancy noted. 2. Unless there is more urgent need, screening mammography is recommended, as per [employer] guidelines. BI-RADS Category 1 - Negative Breast Density - Category B - Scattered areas of fibroglandular density Breast density category C or D implies that the patient has dense breast tissue. Dense breast tissue is very common and is not abnormal but dense breast tissue can make it harder to find cancer on a ma mmogram. Also, dense breast tissue may increase their breast cancer risk. This information about the result of the mammogram report was provided to the patient to raise their awareness. Use this report when you speak with the patient about their risks for breast cancer, which includes their family hist ory. At that time, you may recommend for more screening tests (Ultrasound or MRI) as they might be us eful based on their risk. A negative radiographic report should not delay biopsy if a dominant or clinically suspicious mass is present. Up to ten percent of cancers are not identified on mammography. A negative report may reinforce clinical impression. Adenosis and dense breasts may obscure an underlying neoplasm. False positive reports average 6 to 10%. Patient will receive a letter notifying them of these results.
== END 2022-05-08 01:58 ==
LOC: DI 01:38
PROVIDERS: PCP Family Medicine; Visit Provider Family Medicine
DX: Z12.31 Encounter for screening mammogram for malignant neoplasm of breast (principal)
CPT/HCPCS: 77063; 77067

== ENCOUNTER 2022-05-13 08:51 | Day surgery (SDC) | payer OTHER, SELFPAY ==
[2022-05-13 09:11] VITALS: BP 110/74; PULSE 63; RESP 18; TEMP 36.2; O2SAT 96
--- NOTE | 2022-05-13 10:10 | W.ANESPRE ---
General Info Date of Service Date Performed: 05/13/22 Height: 5 ft 6 in Weight: 76.5 kg Body Mass Index (BMI): 27.2 Surgical Procedure: Operation Date: 05/13/22 11:55 Proposed Procedure Side Surgeon p Wrist ECTR Left David Banuelos MD Meds Allergies and Home Medications Allergies Allergy/AdvReac Type Severity Reaction Status Date / Time adhesive tape Allergy Unknown Skin Rash Unverified 05/13/22 09:10 Home Medication Medication Instructions Recorded estradiol 0.01% (0.1 mg/gram) 1 g vaginal .COMPLEX #42.5 grams 05/08/21 vaginal cream (Estrace) trazodone 50 mg tablet 50 mg PO QHS #90 tabs 02/25/22 pregabalin 50 mg capsule (Lyrica) 50 mg PO DAILY 03/09/22 duloxetine 30 mg capsule,delayed 30 mg PO DAILY 03/11/22 release (Cymbalta) Current Visit Medications: Current Medications Generic Name Dose Route Start Last Admin Trade Name Freq PRN Reason Stop Dose Admin Ringer's Solution 1,000 mls @ 80 mls/hr 05/13/22 06:00 IV 06/11/22 23:59 INFUSION PASTORA Cefazolin Sodium/Dextrose 2 gm in 50 mls @ 100 mls/hr 05/13/22 06:00 Ancef Duplex IVPB 06/11/22 23:59 PREOP PASTORA IV Miscellaneous Supplies 1 each 05/13/22 06:00 Iv Access IV 06/11/22 23:59 DIRECTED PASTORA Sodium Chloride 0 ml 05/13/22 06:00 Normal Saline Flush 10 Ml Syr IV 06/11/22 23:59 PRN PRN Sodium Chloride 0 ml 05/13/22 06:00 Normal Saline 10 Ml Vial IJ 06/11/22 23:59 DIRECTED PRN Sterile Water 0 ml 05/13/22 06:00 Water,Injection,Sterile 10 Ml Vial IJ 06/11/22 23:59 DIRECTED PRN PFSH Active Problems Active Problems: Problem Status Onset Code Trigger finger of right hand M65.30 Chronic low back pain M54.50, G89.29 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, 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 Pain of right great toe M79.674 Lumbago M54.50 Somatic dysfunction of sacral region M99.04 Anxiety state F41.1 Somatic dysfunction of pelvic region M99.05 Effusion of lower leg joint M25.469 Pain in joint, shoulder region M25.519 Sprain of rotator cuff capsule S43.429A Spinal stenosis M48.00 Acid reflux K21.9 Lumbar disc herniation with radiculopathy M51.16 Positive STACI (antinuclear antibody) ~04/25/21 R76.8 Dyspareunia Plantar fasciitis M72.2 Bilateral carpal tunnel syndrome G56.03 Right lateral epicondylitis M77.11 Medical History Medical History Herniated nucleus pulposus, L4-5 Surgical History Surgical History H/O arthroscopy of shoulder History of lumbar surgery X 3 , remotely to L4-L5 with second surgery being a fusion 12/2020-lumbar fusion [id number] in [place] Hx of appendectomy Hx of hand surgery finger as well Hx of tonsillectomy Tobacco Smoking/Tobacco Use Status: Never Passive smoking exposure: No Second hand exposure: No Alcohol Alcohol Intake: current Alcohol intake frequency: a few times a month Alcohol type: wine Substance Use Substance use: Never Substance use type: does not use Prental History History 0 Para Hx # Term Pregnancies Multiple births Hx # Pregnancies Ectopic pregnancies AB induced Hx Number of Living Children AB spontaneous Vital Signs and Lab Results Vital Signs Most Recent Vital Signs in EMR: Most Recent Vital Signs Temp Pulse Resp BP Pulse Ox 36.2 C L 63 18 110/74 96 05/13/22 09:11 05/13/22 09:11 05/13/22 09:11 05/13/22 09:11 05/13/22 09:11 Lab Results Blood Type / Crossmatch: No Data to Display Complete Blood Count: No Data to Display Complete Metabolic Panel: No Data to Display Liver Function Panel: No Data to Display Coagulation Panel: No Data to Display Cardiac Panel: No Data to Display Arterial Blood Gas: No Data to Display Venous Blood Gas: No Data to Display Pancreas Panel: No Data to Display Thyroid Panel: No Data to Display Infectious Disease: No Data to Display Blood Cultures: No Data to Display Toxicology Panel: No Data to Display Imaging and Studies Imaging and Studies Study information below may be from another EMR and interpreted by another provider. Please see original notes in EMR for more complete details. EKG Summary: 03/28/21: Exam: Resting ECG Reason for Exam: palpitations Patient Location: E HR:68 bpm ECG Measurements Heart Rate 68 AXIS GA 168 P 76 QRSd 71 QRS 36 QT 402 T37 QTc 429 Conclusion Sinus rhythm...normal P axis, V-rate 60- 99 I have reviewed and I agree with the emergency room physician's ECG interpretation. Anesthesia Assessment and Plan Anesthesia History Personal History: No History of Anesthesia Complications Family History: No Family History of Anesthesia Complications Exercise Tolerance Exercise Tolerance: Metabolic Equivalents>4 Pertinent Negatives Pertinent Negatives: No Symptoms of GERD, No Major Cardiovascular Symptoms or Complaints and No Major Pulmonary Symptoms or Complaints Cardiac & Pulmonary Exam Cardiac Exam: Normal S1/S2 Heart Sounds Pulmonary Exam: Clear Bilateral Breath Sounds Implantable Cardiac Device Does patient have a Pacemaker or an ICD?: No Airway Exam Known Difficult Airway: No Mallampati Class: 1 Mouth Opening: Normal (> 3cm) Thyromental Distance: Greater than 3 cm Neck Range of Motion: Full ROM Neck Circumference: Normal Teeth Condition: Normal Dentition ASA Classification ASA Score: ASA 2 Emergency Case?: No NPO Status NPO Status: NPO Clears >2 hours, Solids >8 hours Anesthesia Plan Resuscitation Status: Full Code Anesthesia Technique: General Anesthesia Airway Planned: Natural Airway Monitors Used: Standard Monitors
[2022-05-13] MEDS: Lactated Ringers 1,000 ML 80 ML IV (10:15)
[2022-05-13 10:46] VITALS: BMI 27.2
--- NOTE | 2022-05-13 10:49 | W.PM.DSUDISC ---
Date of service: 05/13/22 Time of Service: 10:49 Discharge Plan Disposition Patient Disposition: Home Condition: Good Discharge Details Reason For Visit: R ECTR Attending Provider: David Banuelos Primary Care Provider: Radha Borrego Home Meds and New Rx's Prescriptions: New hydrocodone-acetaminophen 5-325 mg tablet 1 tab PO Q6H PRN (Reason: pain) Qty: 4 0RF acetaminophen 500 mg tablet 1,000 mg PO TID Qty: 90 0RF ibuprofen 600 mg tablet 600 mg PO TID PRN (Reason: pain) Qty: 90 0RF Continued estradiol [Estrace] 0.01 % (0.1 mg/gram) cream 1 g vaginal .COMPLEX Qty: 42.5 5RF Rx Instructions: 1 g vaginal Nightly for 2 weeks then twice weekly trazodone 50 mg tablet 50 mg PO QHS Qty: 90 3RF duloxetine [Cymbalta] 30 mg capsule,delayed release(DR/EC) 30 mg PO DAILY pregabalin [Lyrica] 50 mg capsule 50 mg PO DAILY Discharge Instructions Stand Alone Forms: Lakisha Ma Tunnel Release Activity:: Activity as Tolerated Remove Dressings/Wound Care:: 48 hours Shower/Bathe:: 48 hours Diet:: As Tolerated Discharge Orders Discharge Orders: Discharge Order (Routine); Ordered 05/13/22 Ordered By: Kevon Hartmann DS: Diagnosis Discharge Diagnosis (1) Bilateral carpal tunnel syndrome: Status: Acute
[2022-05-13] MEDS: ceFAZolin 2 GM/50 ML BAG IVPB (10:57)
[2022-05-13] MEDS: Lidocaine 1% Multi-Dose W/EPI 1/100,000 50 ML VIAL (11:06)
[2022-05-13 11:15] VITALS: BP 95/58; PULSE 70; RESP 18; TEMP 36; O2SAT 95
--- NOTE | 2022-05-13 11:24 | ROE_ITS ---
Date of service: 05/13/22 Time of Service: 11:18 Operative Note Operative Note DATE OF PROCEDURE: 05/13/22 PRE-OP DIAGNOSIS: Left Carpal Tunnel Syndrome POST-OP DIAGNOSIS: same PROCEDURE: Left Endoscopic Carpal Tunnel Release SURGEON: David Banuelos ANESTHESIA TYPE: General:No Airway Refer to Anesthesia Record ESTIMATED BLOOD LOSS: 0 PATHOLOGY: none sent TOURNIQUET TIME: 4 COMPLICATIONS: None Patient was transported to: same day Patient's condition: stable Indications: I have seen Ekta in clinic for symptoms of carpal tunnel syndrome. The numbness, tingling, and pain limited function. Clinical exam findings confirmed the diagnosis of carpal tunnel syndrome. Nonoperative measures such as bracing, time, activity modifications had been tried but disability and pain persisted. She was having symptoms of both hands but recently the left became significantly worse. I discussed carpal tunnel release with the patient. I reviewed the risks of the procedure to include, but not limited to, bleeding, infection, pain, stiffness, incomplete release, damage to nerves or vessels, persistent numbness, recurrence. Despite these risks, the patient elected to proceed. Findings: There was tightened carpal tunnel. This was dilated and released successfully with the endoscopic with increased space within the tunnel. The antebrachial fascia was released proximally freeing the median nerve at the wrist. Procedure Description: Ekta was greeted in the preoperative holding area where the correct side was identified and marked. The consent was reviewed with the patient and signed. The history and physical was updated. All questions were answered. Ekta was taken back to the operating room. The patient was placed into the supine position on the operating room table with the left arm on an arm board. A nonsterile tourniquet was placed high onto the arm. All bony prominences were well padded. Prophylactic antibiotics in the form of Cefazolin were administered. The left arm was then prepped with Chloraprep and draped in a standard fashion with stockinette and extremity drape. A timeout to confirm correct identity, side and site, procedure, allergies, anesthesia, and medical concerns was performed. The surgical site was marked in the volar wrist creases in line with the radial border of the fourth ray. This area was anesthetized with approximately 6cc of 1% Lidocaine. The limb was then exsanguinated with an Esmarch. The skin was incised with a 15 blade, approximately 1cm. The skin only was cut and the deeper tissue was dissected bluntly with a tenotomy scissor, avoiding passing ne rve and venous structures. The fascia was penetrated and opened bluntly. A two-prong skin hook was placed under this proximal fascial edge. A series of hamate finders were used to identify and dilate the carpal tunnel. Synovial elevator was used to free synovial attachments to the underside of the transverse carpal ligament. My thumb was kept in the palm to lyudmila the distal extent of the carpal tunnel and correctly position the hand. The Microaire endoscope was inserted without difficulty and without resistance. Excellent visualization showed horizontally running fibers of the transverse carpal ligament (TCL). The distal extent of the TCL was visualized and the end of the scope palpated with the thumb. The blade was elevated and withdrawn from distal to proximal. The TCL was split into two flaps. The endoscope was reinserted to confirm complete release and any remnant ligament was incised. The scope was withdrawn and the proximal aspect of the carpal tunnel was grossly inspected and appeared release with the median nerve visible. The antebrachial fascia at the level of the wrist was then freed from the overlying skin and then the underlying median nerve with blunt dissection. This was transected longitudinally for about 3cm proximal to the wrist incision. The wound was then irrigated with easy flow of irrigant distally and proximally. The incision was closed with a single 4-0 Nylon suture. The wound was dressed with Xeroform, Gauze, Kerlix and Margarito. The tourniquet was deflated with the initial dressing and held with some pressure. Blood flow returned easily to all digits with capillary refill less than 2 seconds. The patient tolerated the procedure well and was returned to the Same Day Surgery area in a stable condition suffering no known complication.
--- NOTE | 2022-05-13 11:24 | W.ANESPOSTOP ---
Postoperative Evaluation Date, Time and Location Date Performed: 05/13/22 Time Performed: 11:24 Patient Location: Day Surgery Unit Vital Signs Most Recent Imported Vital Signs: Most Recent Vital Signs Temp Pulse Resp BP Pulse Ox 36.2 C L 63 18 110/74 96 05/13/22 09:11 05/13/22 09:11 05/13/22 09:11 05/13/22 09:11 05/13/22 09:11 Pain Score Most Recent Pain Score: Most Recent Pain Score Pain Level 3 05/13/22 09:11 Assessment Mental Status: Awake (Alert & Oriented to Patient Baseline) Airway and Respiratory Function: Patent airway with normal (patient baseline) respiratory exam Cardiovascular Function: Hemodynamically Stable Hydration Status: Adequately Hydrated Nausea & Vomiting: No Nausea or Vomiting Pain: Pt. Denies Any Pain Peripheral Nerve Block: Patient did not receive a nerve block
[2022-05-13 11:45] VITALS: BP 97/64; PULSE 51; RESP 18; TEMP 36; O2SAT 95
--- NOTE | 2022-05-13 12:18 | W.ANESPOSTOP ---
Postoperative Evaluation Date, Time and Location Date Performed: 05/13/22 Time Performed: 12:19 Patient Location: Day Surgery Unit Vital Signs Most Recent Imported Vital Signs: Most Recent Vital Signs Temp Pulse Resp BP Pulse Ox 36.0 C L 70 18 95/58 L 95 05/13/22 11:15 05/13/22 11:15 05/13/22 11:15 05/13/22 11:15 05/13/22 11:15 Most Recent Vital Signs Temp Pulse Resp BP Pulse Ox 36.2 C L 63 18 110/74 96 05/13/22 09:11 05/13/22 09:11 05/13/22 09:11 05/13/22 09:11 05/13/22 09:11 Pain Score Most Recent Pain Score: Most Recent Pain Score Pain Level 0 05/13/22 11:15 Assessment Mental Status: Awake (Alert & Oriented to Patient Baseline) Airway and Respiratory Function: Patent airway with normal (patient baseline) respiratory exam Cardiovascular Function: Hemodynamically Stable Hydration Status: Adequately Hydrated Nausea & Vomiting: No Nausea or Vomiting Pain: Pt. Denies Any Pain Peripheral Nerve Block: Patient did not receive a nerve block
== END 2022-05-13 12:10 | disposition home or self-care (01) ==
PROVIDERS: PCP Family Medicine; Visit Provider Student in an Organized Health Care Education/Training Program
PROC: 01N54ZZ Release Median Nerve, Percutaneous Endoscopic Approach (ICD-10-PCS; CPT 29848; principal; 2022-05-13 11:45)
DX: G56.02 Carpal tunnel syndrome, left upper limb (principal)
CPT/HCPCS: 29848; J0690; J1100; J1885; J2405; J2704; J3010

== ENCOUNTER 2022-07-09 11:45 | Outpatient (CLI) | payer OTHER, SELFPAY ==
--- NOTE | 2022-07-09 10:30 | DI.RAD_ITS ---
Exam(s) XR WRIST LT COMPLETE EXAM: XR WRIST LT COMPLETE CLINICAL HISTORY: left wrist pain. TECHNIQUE: 2D digital imaging was performed of the left wrist. Four images were obtained. Carpal t unnel view PA, oblique and lateral views were obtained. COMPARISON: No exams were available for comparison FINDINGS: BONES: No acute fracture is present. No bony destructive lesion is seen. There is a well corticated o sseous density at the tip of the ulnar styloid process which may represent an old injury. JOINTS: The carpal bones are normally aligned. No erosions or joint space narrowing is present. No s uspicious soft tissue calcifications are seen. SOFT TISSUE: Normal. IMPRESSION: No acute fracture or dislocation. DATA REPOSITORY: RADIATION DOSE DELIVERED:
== END 2022-07-09 11:46 | disposition home or self-care (01) ==
LOC: DIORS 11:45
PROVIDERS: PCP Family Medicine; Referring Provider Family Medicine; Visit Provider Student in an Organized Health Care Education/Training Program
DX: M25.532 Pain in left wrist (principal)
CPT/HCPCS: 73110

== ENCOUNTER 2023-11-05 01:15 | Outpatient (CLI) | payer OTHER, SELFPAY ==
[2023-11-05 12:28] LABS: Anion Gap 8.5 mmol/L (3-11); BUN 19 mg/dL (7-18); CO2 29.5 mmol/L (21.0-32.0); CREATININE 0.9 mg/dL (0.55-1.02); Calcium 9.2 mg/dL (8.5-10.1); Calculated LDL 169 mg/dL (<100); Chloride 101 mmol/L (98-107); Cholesterol 292 mg/dL (<200); Estimated GFR 74.57 (mL/min/1.73m2); Glucose 93 mg/dL (74-106); HDL Cholesterol 116 mg/dL (40-60); Sodium 139 mmol/L (136-145); Triglyceride 37 mg/dL (<150)
== END 2023-11-05 01:16 | disposition home or self-care (01) ==
LOC: LOS 01:15
PROVIDERS: PCP Family Medicine; Visit Provider Nurse Practitioner Family
DX: Z13.1 Encounter for screening for diabetes mellitus (principal); Z13.220 Encounter for screening for lipoid disorders
CPT/HCPCS: 36415; 80048; 80061

== ENCOUNTER 2023-11-15 02:16 | Outpatient (CLI) | payer OTHER, SELFPAY ==
--- NOTE | 2023-11-15 08:50 | DI.RAD_ITS ---
Exam(s) XR LUMBAR SPINE COMP W FLEX/EX EXAM: XR LUMBAR SPINE COMP W FLEX/EX CLINICAL HISTORY: LUMBAR RADICULOPATHY,M54.19,RLE PAIN TO ANTEROMEDIAL THIGH,PRIOR L5-S 1. TECHNIQUE: 2D digital imaging was performed of the lumbar spine. Eight images were obtained. AP, l ateral, flexion, extension, right oblique, left oblique and L5-S1 spot views were obtained. COMPARISON: CR XR LUMBAR SPINE AP, LAT from 03/20/2022 FINDINGS: BONES: No fracture or destructive lesion. There are endplate osteophytes at multiple levels of the rubens mbar spine. There are degenerative changes seen at the facets at L5-S1. DISKS: Intervertebral disc spaces are maintained. Note is again made of postsurgical changes at the L 5-S1 disc space. ALIGNMENT: Lumbar spinal alignment is within normal limits. No significant subluxation is seen with flexion or extension. No spondylolysis or spondylolisthesis. SOFT TISSUE: Normal. IMPRESSION: Mild degenerative changes are seen in the lumbar spine. DATA REPOSITORY: RADIATION DOSE DELIVERED:
== END 2023-11-15 02:36 ==
PROVIDERS: PCP Family Medicine; Visit Provider Internal Medicine
DX: Z98.890 Other specified postprocedural states (principal); M51.36 Other intervertebral disc degeneration, lumbar region
CPT/HCPCS: 72114

== ENCOUNTER 2023-11-16 17:35 | Emergency (ER) | payer OTHER, SELFPAY ==
[2023-11-16 17:37] VITALS: BP 106/61; PULSE 63; RESP 14; TEMP 36.6; O2SAT 97
--- NOTE | 2023-11-16 17:56 | W.ED.GENAD ---
Discharge Plan Disposition Patient Disposition: Home Condition: Stable Discharge Details Clinical Impression: Left shoulder strain Primary Care Provider: Radha Borrego ED Provider: Enoc Leary Home Meds and New Rx's Prescriptions: Continued pregabalin [Lyrica] 50 mg capsule 50 mg PO DAILY meloxicam 15 mg tablet 15 mg PO PRN trazodone 50 mg tablet 100 mg PO QHS Qty: 180 4RF Rx Instructions: 1-2 tabs po HS prn Discharge Instructions Additional Instructions: Your x-ray did not show any broken bones Follow-up with your orthopedist if your pain continues If you feel more ill or have severe worsening pain return to the emergency department for reevaluation Referrals: David Banuelos MD [ [facility] STAFF PHYSICIAN] - [facility] General Mode of arrival: ambulatory. Date/Time Provider Initiated Documentation: 11/16/23 17:41. Limitations to Documentation: no limitations. Information obtained by: patient. History of Present Illness 58 year old F presents to the emergency department with the chief complaint of left shoulder pain, described as moderate, Quality is described as aching, and it has been constant. No relieving factors improve symptom(s), No exacerbating factors reported . Patient notes no other symptoms.. Related Data Home Medications ?Medication ?Instructions ?Recorded ?Confirmed pregabalin 50 mg capsule (Lyrica) 50 mg PO DAILY 03/09/22 11/16/23 meloxicam 15 mg tablet 15 mg PO PRN 09/02/23 11/16/23 trazodone 50 mg tablet 100 mg (2 x 50 mg) PO QHS #180 tabs 09/02/23 11/16/23 Previous Rx's ?Medication ?Instructions ?Recorded trazodone 50 mg tablet 100 mg (2 x 50 mg) PO QHS #180 tabs 09/02/23 Allergies Allergy/AdvReac Type Severity Reaction Status Date / Time adhesive tape Allergy Unknown Skin Rash Verified 11/16/23 17:41 duloxetine (From Cymbalta) AdvReac Intermediate Nausea Verified 11/16/23 17:41 General Stated Complaint: Orthopedic ALPA: 4 Review of Systems All systems reviewed & are unremarkable except as noted in HPI and below Constitutional Constitutional: Denies chills, Denies fever(s) and Denies weakness Cardiovascular Cardiovascular: Denies chest pain and Denies dyspnea Respiratory Respiratory: Denies cough and Denies dyspnea Gastrointestinal Gastrointestinal: Denies abdominal pain, Denies nausea and Denies vomiting Musculoskeletal Musculoskeletal: Denies joint swelling Neurologic Neurologic: Denies weakness Exam Const General: no acute distress Orientation: alert [facility] Head: normal to inspection Ears: external ears normal General nose exam: external nose normal Mouth: moist mucous membranes Eyes General: appearance normal, both eyes and all related structures Neck Neck: normal visual inspection Resp Effort & Inspection: normal respiratory effort and able to speak in complete sentences Cardio Rate: regular rate Skin General skin exam: no rashes or lesions noted Neuro General: patient alert and patient oriented x3 Extrem General: capillary refill normal, no cyanosis and no edema Psych Mental Status: mental status grossly normal Course Vital Signs Vital signs: Vital Signs Temperature 36.6 C 11/16/23 17:37 Pulse 63 11/16/23 17:37 Respiratory Rate 14 11/16/23 17:37 Blood Pressure 106/61 11/16/23 17:37 Pulse Oximetry 97 11/16/23 17:37 Temperature 36.6 C 11/16/23 17:37 Temperature Source Oral 11/16/23 17:37 Pulse 63 11/16/23 17:37 Respiratory Rate 14 11/16/23 17:37 Respiratory Effort Normal, Non-Labored 11/16/23 17:40 Blood Pressure 106/61 11/16/23 17:37 Blood Pressure Position Sitting 11/16/23 17:37 Pulse Oximetry 97 11/16/23 17:37 Oxygen Delivery Method Room Air 11/16/23 17:37 Oxygen Flow Rate 0 11/16/23 17:37 Pain Level 8 11/16/23 17:37 Medical Decision Making 58-year-old female comes in with left shoulder pain. She says 4 days ago she had her horse and was holding her lead when the horse suddenly reared its head and pulled on her left arm. She did not fall or hit her head. She has pain in her left anterior shoulder and left mid humerus since so came here for evaluation. She denies any paresthesias or numbness. She has limited range of motion, she is able to AB duct the shoulder to about 90 degrees and then limited by pain. She has intact distal sensation and pulses. She has reproducible tenderness in the left anterior shoulder and left medial wrist without visible or palpable deformities. Suspect strain and possibly ligamentous injury, will obtain x-rays to exclude fracture. No acute findings on humerus or shoulder x-ray, does have some degenerative findings of her AC joint. She is hemodynamically stable, will provide a sling and she will follow-up with her orthopedist that she seen before. Return precautions given Differential Diagnosis Differential Diagnosis: Fracture, strain, contusion, ligamentous injury Quality:SDOH Health Related Social Needs: No Data to Display PFSH All Active Problems (Updated 11/16/23 @ 19:00 by Enoc Leary MD) Left shoulder strain (Acute) Left wrist tendinitis (Acute) Trigger finger of right hand (Acute) Right middle finger Patient reports right ring and little finger -s/p Depo-Medrol injection for right little finger in [place] 04/09 Chronic low back pain (Acute) 12/2020- s/p fusuon of l5-s1 disc in CT Insomnia secondary to chronic pain (Acute) Pain of right great toe (Acute) Lumbago (Acute) Somatic dysfunction of sacral region (Acute) Anxiety state (Acute) Somatic dysfunction of pelvic region (Acute) Effusion of lower leg joint (Acute) Pain in joint, shoulder region (Acute) Sprain of rotator cuff capsule (Acute) Spinal stenosis (Acute) Acid reflux (Chronic) Lumbar disc herniation with radiculopathy (Acute) Positive STACI (antinuclear antibody) (Acute ~04/25/21) 1:80, speckled pattern Dyspareunia (Acute) Encourage patient increase use of estrogen to 0.5 g daily for 2 weeks then twice weekly Plantar fasciitis (Acute) Bilateral carpal tunnel syndrome (Acute) S/P L ECTR: 05/13/2022 Right lateral epicondylitis (Acute) Medical History Herniated nucleus pulposus, L4-5 Surgical History H/O arthroscopy of shoulder Hx of appendectomy Hx of hand surgery finger as well Hx of tonsillectomy History of lumbar surgery X 3 , remotely to L4-L5 with second surgery being a fusion 12/2020-lumbar fusion [id number] in [place] Family History Mother , 86 Depression Heart disease Father , 84 Diabetes Hyperlipidemia Sister Depression Maternal Grandfather , 92 Diabetes Paternal Grandfather , 44 No problems noted. Maternal Grandmother , 84 No problems noted. Paternal Grandmother , 72 No problems noted. 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 [employer] Pets and animals: Yes Pets and animals: dog(s) and horse(s) Sexually active: Yes Do you think of yourself as: straight/heterosexual Current gender identity: female What is your relationship status?: How often do you talk on the phone with friends or family?: once per week How often do you get together with friends or relatives?: once per week How often do you attend jainism or holiness services?: 1-3 times per year Do you belong to any clubs or organized social groups?: no Panel score (0-1 are the most socially isolated patients): 1 Duration: 15-30 minutes/day Frequency: 3-4 times per week Mary/Sabianist: Congregation Special mary needs: No Seatbelt use: always Helmet use: Yes Helmet use: always Drive intox or ride w/intox winch driver: No Do you feel safe at home: Yes Do you feel safe in your relationship?: Yes Female Reproductive History Menstrual Menopause type: natural Date of menopause: 02/15/17 History History 0 Para Hx # Term Pregnancies Multiple births Hx # Pregnancies Ectopic pregnancies AB induced Hx Number of Living Children AB spontaneous
--- NOTE | 2023-11-16 18:19 | DI.RAD_ITS ---
Exam(s) XR SHOULDER LT COMPLETE 2+V XR HUMERUS LT EXAM: XR SHOULDER LT COMPLETE 2+V and XR humerus LT CLINICAL HISTORY: pain. TECHNIQUE: 2D digital imaging was performed of the left humerus and shoulder. Seven images were obt ained. AP, lateral, Grashey, Y-view and axillary views were obtained. COMPARISON: No priors for comparison. FINDINGS: BONES: No acute fracture is present. No bony destructive lesion is seen. JOINTS: No dislocation present. There are degenerative changes seen at the acromioclavicular joint. The glenohumeral joint is well maintained. The visualized elbow is unremarkable. SOFT TISSUE: Normal. IMPRESSION: Mild degenerative changes seen at the acromioclavicular joint. DATA REPOSITORY: RADIATION DOSE DELIVERED:
--- NOTE | 2023-11-17 08:24 | NUR.NOTE ---
Access chart to determine follow up for ortho. It is documented so a referral will be put in today. Nursing Note:
== END 2023-11-16 19:14 | disposition home or self-care (01) ==
PROVIDERS: Emergency Provider Emergency Medicine; PCP Family Medicine
DX: S46.912A Strain of unspecified muscle, fascia and tendon at shoulder and upper arm level, left arm, initial encounter (principal); X50.9XXA Other and unspecified overexertion or strenuous movements or postures, initial encounter; Y93.52 Activity, horseback riding; Y92.89 Other specified places as the place of occurrence of the external cause; Z98.1 Arthrodesis status
CPT/HCPCS: 99283; 73030; 73060

== ENCOUNTER 2023-12-09 01:43 | Outpatient (CLI) | payer OTHER, SELFPAY ==
--- NOTE | 2023-12-09 06:45 | DI.MRI_ITS ---
Exam(s) MR UPPER JOINT LT WO EXAM: MR UPPER JOINT LT WO CLINICAL HISTORY: Left shoulder strain,S46.912A TECHNIQUE: Multiplanar multisequence MRI of the shoulder was performed. COMPARISON: CR XR HUMERUS LT from 11/16/2023 CR XR SHOULDER LT COMPLETE 2+V from 11/16/2023 FINDINGS: MARROW:There is no evidence of fracture, Hill-Sachs deformity, nor ominous osseous lesions. GLENOHUMERAL JOINT: No joint effusion nor obvious loose intra-articular bodies. No chondral defects. No osteophytes. No degenerative subarticular cysts. ROTATOR CUFF MECHANISM: AC JOINT/ACROMIUM: There are mild degenerative changes in the AC joint. No prominent downgoing osteo phytes. Mild undersurface hypertrophied soft tissue. No prominent impingement evident at this level .. There is no evidence of os acromiale. Supraspinatus: There is significant signal abnormality in the supraspinatus tendon consistent with te ndinitis-tendinosis. No high-grade tear evident. No muscle atrophy. Infraspinatus: Intact. No evidence of tear nor muscle atrophy. Teres Minor: Intact. No evidence of tear nor muscle atrophy. Subscapularis/anterior cuff: Intact. No abnormal signal at the level of the multipennate insertional fibers. No significant tear nor atrophy. BICEPS TENDON: Exhibits normal position within the intertubercular groove. No evidence of tear. No tenosynovitis. LABRUM: No obvious labral tear identified. No evidence of paralabral cyst. QUADRILATERAL SPACE: No evidence of mass in the region of the axillary nerve and dorsal circumflex hu meral vessels. Visualized triceps muscle at this level appears unremarkable. IMPRESSION: 1. Findings are consistent with rotator cuff supraspinatus tendonitis. 2. No evidence of biceps tendon tear nor obvious labral tears. 3. No glenohumeral joint effusion or loose intra-articular bodies. Minimal degenerative changes. DATA REPOSITORY:
== END 2023-12-09 02:03 ==
LOC: DI 01:43
PROVIDERS: PCP Family Medicine; Visit Provider Family Medicine
DX: M75.22 Bicipital tendinitis, left shoulder (principal)
CPT/HCPCS: 73221

== ENCOUNTER 2023-12-09 10:15 | Outpatient (CLI) | payer OTHER, SELFPAY ==
--- NOTE | 2023-12-09 | DI.RAD_ITS ---
Exam(s) XR HIP RT COMPLETE AP PELVIS EXAM: XR HIP RT COMPLETE AP PELVIS CLINICAL HISTORY: Rt hip pain, M25.551. TECHNIQUE: 2D digital imaging was performed. COMPARISON: No exams were available for comparison FINDINGS: 3 views No evidence acute fracture or dislocation. No joint space narrowing. There is a small faint calcifi c density seen adjacent to the lateral aspect of the right humeral head, appearing be within the join t space. Bone density normal. No osseous lesions. Incidentally noted is hardware at L5-S1 level IMPRESSION: Subtle 1-2 mm round calcification just lateral to the right femoral head. No fractures. No joint sp yun narrowing. DATA REPOSITORY: RADIATION DOSE DELIVERED:
== END 2023-12-09 10:35 ==
LOC: DI 10:16
PROVIDERS: PCP Family Medicine; Visit Provider Internal Medicine
DX: M61.48 Other calcification of muscle, other site (principal); M25.551 Pain in right hip
CPT/HCPCS: 73502

== ENCOUNTER 2023-12-16 12:36 | Outpatient (CLI) | payer OTHER, SELFPAY ==
--- NOTE | 2023-12-16 14:12 | DI.RAD_ITS ---
Exam(s) XR CERVICAL SPINE COMP 4-5V EXAM: XR CERVICAL SPINE COMP 4-5V CLINICAL HISTORY: cervicalgia,m54.2. TECHNIQUE: 2D digital imaging was performed. COMPARISON: No exams were available for comparison FINDINGS: Six views No evidence of fracture, listhesis, nor offset of the spinal laminar line. There is moderate disc space narrowing at C5-6 level and there are bilateral Luschka joint osteophyte s at this level. C6-7 exhibits normal height. There is mild degenerative anterolisthesis of C4 upon C5 related to facet arthropathy. There is also significant facet arthropathy at C3-4 level. There are no cervical ribs. Bone density normal. No osseous lesions IMPRESSION: Chronic disc space narrowing C5-6.. Bilateral Luschka joint osteophytes are noted at this level. Mild degenerative anterolisthesis C4 upon C5. facet arthropathy as described above. DATA REPOSITORY: RADIATION DOSE DELIVERED:
== END 2023-12-16 12:56 ==
LOC: DI 12:39
PROVIDERS: PCP Family Medicine; Visit Provider Family Medicine
DX: M50.122 Cervical disc disorder at C5-C6 level with radiculopathy (principal)
CPT/HCPCS: 72050

== ENCOUNTER 2024-04-17 16:50 | Emergency (ER) | payer OTHER, SELFPAY ==
[2024-04-17 17:09] VITALS: BP 121/81; PULSE 66; RESP 15; TEMP 37
== END 2024-04-17 17:43 | disposition left against medical advice (07) ==
PROVIDERS: PCP Family Medicine
DX: Z53.21 Procedure and treatment not carried out due to patient leaving prior to being seen by health care provider (principal)

== ENCOUNTER 2024-04-17 17:57 | Outpatient (CLI) | payer OTHER, SELFPAY ==
--- NOTE | 2024-04-17 16:46 | DI.RAD_ITS ---
Exam(s) XR LUMBAR SPINE COMP W FLEX/EX EXAM: XR LUMBAR SPINE COMP W FLEX/EX CLINICAL HISTORY: M54.16 Lumbar radiculopathy, lumbosacral pain. TECHNIQUE: 2D digital imaging was performed. Seven views. Flexion and extension views were perform ed in addition to the routine views. COMPARISON: CR XR LUMBAR SPINE COMP W FLEX/EX from 11/15/2023 FINDINGS: BONES: No fracture or destructive lesion. Vertebral body heights are maintained. There are small e ndplate osteophytes. Mild facet hypertrophy identified at L3-4 and L4-5. DISKS: A metallic disc spacer is again noted at L5-S1. Intervertebral disc spaces are maintained. ALIGNMENT: Lumbar spinal alignment is within normal limits. Slight retrolisthesis of L5 with respect to L4 on the flexion view. SOFT TISSUE: Normal. IMPRESSION: Postsurgical changes L5-S1. Slight subluxation with flexion at L4-5. DATA REPOSITORY: RADIATION DOSE DELIVERED:
--- NOTE | 2024-04-17 16:46 | DI.RAD_ITS ---
Exam(s) XR HIP LT COMPLETE AP PELVIS EXAM: XR HIP LT COMPLETE AP PELVIS CLINICAL HISTORY: M25.552 LT hip pain, Left anterior hip pain radiating along thigh. TECHNIQUE: 2D digital imaging was performed. Two views. COMPARISON: CR XR HIP RT COMPLETE AP PELVIS from 12/09/2023 FINDINGS: Metallic disc spacer again noted at L5-S1 BONES: No acute fracture is present. No bony destructive lesion is seen. There are enthesophytes at the iliac wings. JOINTS: No dislocation present. The SI joints and pubic symphysis are intact. The hip joint spaces ar e maintained. There is minimal acetabular spurring. SOFT TISSUE: Normal. IMPRESSION: Mild degenerative changes. DATA REPOSITORY: RADIATION DOSE DELIVERED:
== END 2024-04-17 18:17 ==
LOC: DI 17:58
PROVIDERS: PCP Family Medicine; Visit Provider Internal Medicine
DX: M54.16 Radiculopathy, lumbar region (principal); Z98.890 Other specified postprocedural states; M25.552 Pain in left hip
CPT/HCPCS: 72114; 73502

== ENCOUNTER 2024-05-18 01:07 | Outpatient (CLI) | payer OTHER, SELFPAY ==
[2024-05-18] MEDS: Normal Saline - Diluent 50 ML VIAL 15 ML IJ (14:42)
[2024-05-18] MEDS: Bupivacaine 0.5% Pres-Free 10 ML VIAL IJ (14:43)
[2024-05-18] MEDS: methylPREDNISolone ACETATE 40 MG/ML VIAL IM (14:43)
[2024-05-18] MEDS: Omnipaque 300 MG/ML 10 ML BTL 5 ML IJ (14:44)
--- NOTE | 2024-05-18 14:45 | DI.RAD_ITS ---
Exam(s) RF JOINT INJ. FLUORO GUID RAD EXAM: RF JOINT INJ. FLUORO GUID RAD CLINICAL HISTORY: L HIP PAIN M16.12 OSTEOARTHRITIS LT HIP M70.62 TROCHANTERIC BURSITIS. The Patient has had persistent left hip pain. Noninvasive measures have been tried. To serve as both diagnosti c and therapeutic, an injection under fluoroscopy was recommended. The risks of the procedure were d iscussed with their Orthopedic provider and the patient elected to proceed. TECHNIQUE: 2D and realtime digital imaging was performed. CONTRAST MATERIAL: Water soluble contrast was utilized. COMPARISON: No exams were available for comparison FINDINGS: The Patient was greeted in the fluoroscopy room. The correct side was identified and the consent was reviewed with the patient and was signed. The patient was properly positioned on the fluoroscopy ta ble. The left hipwas then prepped and draped. The left hip injection starting point was identified by the bony landmarks and fluoroscopy. The skin and soft tissue in the tract of the injection was an esthetized with 1% Bupivacaine. A spinal needle was then inserted into the left hip joint at the lev el of the lateral head neck junction under fluoroscopic guidance. A small amount of Omnipaque soluti on was injected to confirm intraarticular placement. Once confirmed, the left hip was injected with 5cc of a solution containing 0.5% Bupivacaiine and 40 mg of Depo-Medrol. A bandaid was placed on the injection site. The patient tolerated the procedure well and left the department in good condition. IMPRESSION: Successful left hip injection. RADIATION DOSE DELIVERED: Ka,r=7.17 mGy
== END 2024-05-18 01:27 ==
LOC: DI 01:07
PROVIDERS: PCP Family Medicine; Visit Provider Student in an Organized Health Care Education/Training Program
DX: M16.12 Unilateral primary osteoarthritis, left hip (principal); M70.62 Trochanteric bursitis, left hip
CPT/HCPCS: 20610; 77002; J0665; J1010

== ENCOUNTER 2024-05-31 01:38 | Outpatient (CLI) | payer OTHER, SELFPAY | END 2024-05-31 01:58 | LOC: DI 01:38 | PROVIDERS: PCP Family Medicine; Visit Provider Nurse Practitioner Family | DX: Z12.31 Encounter for screening mammogram for malignant neoplasm of breast (principal); R92.323 Mammographic fibroglandular density, bilateral breasts | CPT/HCPCS: 77063; 77067 ==

== ENCOUNTER 2024-07-22 08:27 | Emergency (ER) | payer OTHER, SELFPAY ==
[2024-07-22 08:30] VITALS: BP 128/66; PULSE 70; RESP 16; TEMP 36.6; O2SAT 99
--- NOTE | 2024-07-22 08:30 | DI.CT_ITS ---
Exam(s) CT LUMBAR SPINE WO EXAM: CT LUMBAR SPINE WO CLINICAL HISTORY: fall off horse 5 days ago, pain. TECHNIQUE: Imaging Protocol: Axial computed tomography images with coronal and sagittal reformatted images were created and reviewed. COMPARISON: MR MRI, LUMBAR SPINE S/ CONTRAST from 04/27/2024 FINDINGS: Bones: No fractures or dislocations are seen. The alignment of the spine is normal including the thor acolumbar junction. Mild degenerative changes are seen throughout the lumbar spine. Soft tissues: The soft tissues of the visualized abdomen and chest are unremarkable. No large disk he rniations are identified. No significant central spinal canal or neural foraminal stenosis is presen t. There is a again seen an intervertebral disc space device at L5-S1. IMPRESSION: No acute fracture or subluxation in the lumbar spine. RADIATION DOSE DELIVERED: 593.93mGy.cm Total DLP 593.93mGy.cm Total DLP 593.93mGy.cm Total DLP DATA REPOSITORY: All CT scans at this facility are submitted to the National Radiology Data Registry (NRDR) Dose Index Registry (DIR) with the [employer] (A[employer]). RADIATION OPTIMIZATION: All CT scans at this facility use at least one of these dose optimization te chniques: automated exposure control; mA and/or kV adjustment per patient size (includes targeted exa ms where dose is matched to clinical indication); or iterative reconstruction.
--- NOTE | 2024-07-22 08:30 | DI.CT_ITS ---
Exam(s) CT PELVIC WO EXAM: CT PELVIC WO CLINICAL HISTORY: fall off horse 5 days ago, pain. TECHNIQUE: Imaging Protocol: Axial computed tomography images with coronal and sagittal reformatted images were created and reviewed. COMPARISON: CT CT CHEST PE CTA from 03/28/2021 CR XR HIP LT COMPLETE AP PELVIS from 04/17/2024 MR MRI, LUMBAR SPINE S/ CONTRAST from 04/27/[address] LUMBAR SPINE WO from 07/22/2024 FINDINGS: Bones: There is a lucency seen in the posterior aspect of the left iliac bone (series 7, image 23). This likely represents artifact. It is not identified on the CT scan of the lumbar spine from the hay[facility] day. It is only appreciated on the axial views. No acute fracture or dislocation. Bony alignme nt is satisfactory. No cellulitic or osteomyelitic changes are identified. There is no evidence of joint space narrowing or cystic degeneration seen. There is again seen an intervertebral disc space device at L5-S1. No lytic or sclerotic lesions are identified. Soft Tissues: Calcified uterine fibroids are present. IMPRESSION: 1. No definite acute fracture or dislocation. RADIATION DOSE DELIVERED: 266.29mGy.cm Total DLP 266.29mGy.cmTotal DLP DATA REPOSITORY: All CT scans at this facility are submitted to the National Radiology Data Registry (NRDR) Dose Index Registry (DIR) with the [employer] (ACR). RADIATION OPTIMIZATION: All CT scans at this facility use at least one of these dose optimization te chniques: automated exposure control; mA and/or kV adjustment per patient size (includes targeted exa ms where dose is matched to clinical indication); or iterative reconstruction.
--- NOTE | 2024-07-22 08:45 | ED.GENADUL_ITS ---
Discharge Plan Disposition Patient Disposition: Home Condition: Stable Discharge Details Clinical Impression: Lumbar contusion, Coccyx contusion Primary Care Provider: Radha Borrego ED Provider: Enoc Leary Home Meds and New Rx's Prescriptions: New lidocaine 5 % adhesive patch,medicated 1 patch topical DAILY Qty: 30 0RF Rx Instructions: leave on most painful area for up to 12 hrs Continued pregabalin 25 mg capsule 50 mg PO TID Patient Comments: TAKE UP TO 2 CAPSULES EVERY 8 HOURS PER TITRATION SCHEDULE meloxicam 15 mg tablet 15 mg PO PRN trazodone 50 mg tablet 100 mg PO QHS Qty: 180 4RF Rx Instructions: 1-2 tabs po HS prn venlafaxine 37.5 mg tablet 37.5 mg PO DAILY tramadol 50 mg tablet 50 mg PO TID Patient Comments: TAKE ONE TABLET BY MOUTH EVERY 6 TO 8 HOURS NEEDED FOR MODERATE TO SEVERE PAIN MAXIMUM DAILY DOSE = 4 TABLETS Discharge Instructions Additional Instructions: Your imaging did not show any concerning findings at this time. If your pain is not improving this week follow-up with your primary care provider. If you feel significantly more ill or have severe worsening pain return to the emergency department for reevaluation. HPI General Mode of arrival: ambulatory . Date/Time Provider Initiated Documentation: 07/22/24 08:29 . Limitations to Documentation: no limitations . Information obtained by: patient . History of Present Illness 59 year old F presents to the emergency department with the chief complaint of lower back/tailbone pain, described as severe, Quality is described as aching, and is localized to the back. Patient started experiencing this day(s) (5) and it has been constant. No relieving factors improve symptom(s), No exacerbating factors reported . Related Data Home Medications ?Medication ?Instructions ?Recorded ?Confirmed meloxicam 15 mg tablet 15 mg PO PRN 09/02/23 07/22/24 trazodone 50 mg tablet 100 mg (2 x 50 mg) PO QHS #180 tabs 09/02/23 07/22/24 tramadol 50 mg tablet 50 mg PO TID 04/17/24 07/22/24 venlafaxine 37.5 mg tablet 37.5 mg PO DAILY 05/16/24 07/22/24 pregabalin 25 mg capsule 50 mg PO TID 05/17/24 07/22/24 lidocaine 5 % topical patch 1 patch topical DAILY #30 ea 07/22/24 Previous Rx's ?Medication ?Instructions ?Recorded trazodone 50 mg tablet 100 mg (2 x 50 mg) PO QHS #180 tabs 09/02/23 lidocaine 5 % topical patch 1 patch topical DAILY #30 ea 07/22/24 Allergies Allergy/AdvReac Type Severity Reaction Status Date / Time adhesive tape Allergy Unknown Skin Rash Verified 07/22/24 08:33 duloxetine (From Cymbalta) AdvReac Intermediate Nausea Verified 07/22/24 08:33 General Stated Complaint: Nk/Back Pain ALPA: 3 Review of Systems All systems reviewed & are unremarkable except as noted in HPI and below Constitutional Constitutional: Denies chills, Denies fever(s) and Denies weakness Cardiovascular Cardiovascular: Denies chest pain Gastrointestinal Gastrointestinal: Denies abdominal pain Neurologic Neurologic: Denies weakness Exam Const General: no acute distress Orientation: alert HENMT Head: normal to inspection Ears: external ears normal General nose exam: external nose normal Mouth: moist mucous membranes Eyes General: appearance normal, both eyes and all related structures Neck Neck: normal visual inspection Resp Effort & Inspection: normal respiratory effort and able to speak in complete sentences Cardio Rate: regular rate Back/Spine/Pelvis Thoracic/Lumbar Spine: No thoracic spinal tenderness and lumbar spinal tenderness Coccyx: tenderness Skin General skin exam: no rashes or lesions noted Neuro General: patient alert and patient oriented x3 Extrem General: normal to inspection Psych Mental Status: mental status grossly normal Course Vital Signs Vital signs: Vital Signs Temperature 36.6 C 07/22/24 08:30 Pulse 70 07/22/24 08:30 Respiratory Rate 16 07/22/24 08:30 Blood Pressure 128/66 07/22/24 08:30 Pulse Oximetry 99 07/22/24 08:30 Temperature 36.6 C 07/22/24 08:30 Pulse 70 07/22/24 08:30 Respiratory Rate 16 07/22/24 08:30 Blood Pressure 128/66 07/22/24 08:30 Blood Pressure Position Sitting 07/22/24 08:30 Pulse Oximetry 99 07/22/24 08:30 Oxygen Delivery Method Room Air 07/22/24 08:30 Oxygen Flow Rate 0 07/22/24 08:30 Pain Level 8 07/22/24 08:30 Comment 2 with resting 07/22/24 08:30 Medical Decision Making 59-year-old female who has a chronic history of lower back pain and sees pain clinic comes in with 5 days of increased lower back and tailbone pain after she states she was on a horse that bucked her off and she landed on her lower back. Did not hit her head or have loss of consciousness. She has had pain since then so came here for evaluation. She is urinating and having normal bowel movements per the patient. Denies any weakness. She has a normal gait on arrival. She has reproducible tenderness over L4 and L5 spinous processes and also the coccyx. No saddle anesthesia. I suspect contusion but will obtain CT to evaluate for possible fracture. No findings on exam or history to suggest a spinal cord injury. Imaging negative for acute pathology, patient is stable and has no new pain elsewhere. I suspect contusion. She is stable for discharge and will follow-up with her PCP if not improving this week and return precautions given. Medical Records Medical records reviewed: Yes I reviewed the patient's medical records. Quality:[facility] Health Related Social Needs: No Data to Display [facility] All Active Problems (Updated 07/22/24 @ 10:10 by Enoc Leary MD) Coccyx contusion (Acute) Lumbar contusion (Acute) Postlaminectomy syndrome (Acute) Arthritis of left hip (Acute) Trochanteric bursitis of left hip (Acute) Radicular leg pain (Acute) Cervicalgia (Acute) Tendinopathy of left biceps tendon (Acute) Traumatic tear of left rotator cuff (Acute 11/09/23) Left wrist tendinitis (Acute) Trigger finger of right hand (Acute) Right middle finger Patient reports right ring and little finger -s/p Depo-Medrol injection for right little finger in [place] 04/09 Chronic low back pain (Acute) 12/2020- s/p fusuon of l5-s1 disc in CT Insomnia secondary to chronic pain (Acute) Pain of right great toe (Acute) Somatic dysfunction of sacral region (Acute) Anxiety state (Acute) Somatic dysfunction of pelvic region (Acute) Effusion of lower leg joint (Acute) Pain in joint, shoulder region (Acute) Sprain of rotator cuff capsule (Acute) Spinal stenosis (Acute) Acid reflux (Chronic) Lumbar disc herniation with radiculopathy (Acute) Positive STACI (antinuclear antibody) (Acute ~04/25/21) 1:80, speckled pattern Dyspareunia (Acute) Encourage patient increase use of estrogen to 0.5 g daily for 2 weeks then twice weekly Plantar fasciitis (Acute) Bilateral carpal tunnel syndrome (Acute) S/P L ECTR: 05/13/2022 Right lateral epicondylitis (Acute) Medical History Herniated nucleus pulposus, L4-5 Surgical History H/O arthroscopy of shoulder Hx of appendectomy Hx of hand surgery finger as well Hx of tonsillectomy History of lumbar surgery X 3 , remotely to L4-L5 with second surgery being a fusion 12/2020-lumbar fusion [id number] in [place] Family History Mother , 86 Depression Heart disease Father , 84 Diabetes Hyperlipidemia Sister Depression Maternal Grandfather , 92 Diabetes Paternal Grandfather , 44 No problems noted. Maternal Grandmother , 84 No problems noted. Paternal Grandmother , 72 No problems noted. Other Plantar fasciitis Social History Smoking/Tobacco Use Status: Never Second Hand Exposure: No Smoking risk assessment performed?: Yes Alcohol Intake: current Alcohol Intake frequency: a few times a month Alcohol type: wine Drug use: Never Substance use type: does not use Caregiver/Support person: No Household members: spouse Housing: house Communication Needs: None Do you need help understanding health information?: Never current occupation: [employer] Pets and animals: Yes Pets and animals: dog(s) and horse(s) Sexually active: Yes Do you think of yourself as: straight/heterosexual Current gender identity: female What is your relationship status?: How often do you talk on the phone with friends or family?: once per week How often do you get together with friends or relatives?: once per week How often do you attend christianity or anabaptism services?: 1-3 times per year Do you belong to any clubs or organized social groups?: no Panel score (0-1 are the most socially isolated patients): 1 Duration: 15-30 minutes/day Frequency: 3-4 times per week Mary/Denominational: Congregational Special mary needs: No Seatbelt use: always Helmet use: Yes Helmet use: always 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
[2024-07-22] MEDS: Ketorolac 15 MG/ML VIAL IM (08:48)
[2024-07-22] MEDS: Lidocaine 5% Patch 1 PATCH TP (10:13)
== END 2024-07-22 10:17 | disposition home or self-care (01) ==
PROVIDERS: Emergency Provider Emergency Medicine; PCP Family Medicine
DX: S30.0XXA Contusion of lower back and pelvis, initial encounter (principal); S39.82XA Other specified injuries of lower back, initial encounter; Z98.1 Arthrodesis status; V80.010A Animal-rider injured by fall from or being thrown from horse in noncollision accident, initial encounter; Y93.52 Activity, horseback riding; Y92.89 Other specified places as the place of occurrence of the external cause
CPT/HCPCS: 96372; 99284; 72131; 72192; J1885

== ENCOUNTER 2024-08-02 15:37 | Outpatient (REF) | payer OTHER, SELFPAY | END 2024-08-02 15:38 | disposition home or self-care (01) | LOC: LBN 15:37 | PROVIDERS: PCP Family Medicine; Visit Provider Obstetrics & Gynecology | DX: Z12.4 Encounter for screening for malignant neoplasm of cervix (principal) | CPT/HCPCS: 88142; 87624 ==

== ENCOUNTER 2024-09-30 10:15 | Emergency (ER) | payer OTHER, SELFPAY ==
[2024-09-30 10:17] VITALS: BP 177/90; PULSE 62; RESP 16; TEMP 36.9; O2SAT 100
--- NOTE | 2024-09-30 10:30 | DI.RAD_ITS ---
Exam(s) XR FOOT RT COMPLETE EXAM: XR FOOT RT COMPLETE CLINICAL HISTORY: trauam. TECHNIQUE: 2D digital imaging was performed. Three views. COMPARISON: CR XR FOOT RT COMPLETE from 11/03/2021 FINDINGS: BONES: No acute fracture is present. No bony destructive lesion is seen. Plantar calcaneal spur. JOINTS: No dislocation present. Mild hallux valgus. Mild spurring at the 1st MTP joint but no significant joint space narrowing. Hammertoe deformity of the 2nd toe. SOFT TISSUE: Lateral swelling at the ankle. IMPRESSION: No acute fracture. The preliminary [facility] report was reviewed. DATA REPOSITORY: RADIATION DOSE DELIVERED:
--- NOTE | 2024-09-30 10:32 | DI.RAD_ITS ---
Exam(s) XR ANKLE RT COMPLETE EXAM: XR ANKLE RT COMPLETE CLINICAL HISTORY: trauma. TECHNIQUE: 2D digital imaging was performed. Three views. COMPARISON: CR XR ANKLE LT COMPLETE from 08/12/2021 CR,XR XR FOOT RT COMPLETE from 09/30/2024 FINDINGS: BONES: No acute fracture is present. No bony destructive lesion is seen. Plantar calcaneal spur. JOINTS: The ankle mortise is normally aligned. SOFT TISSUE: Marked swelling over the lateral malleolus. IMPRESSION: Soft tissue swelling. No visible fracture. The preliminary [facility] report was reviewed. DATA REPOSITORY: RADIATION DOSE DELIVERED:
--- NOTE | 2024-09-30 10:35 | W.ED.GENAD ---
Discharge Plan Discharge Details Chief Complaint: Orthopedic Primary Care Provider: Radha Borrego ED Provider: Francisco Almanzar Home Meds and New Rx's Prescriptions: No Action pregabalin 25 mg capsule 50 mg PO TID PRN Patient Comments: TAKE UP TO 2 CAPSULES EVERY 8 HOURS PER TITRATION SCHEDULE meloxicam 15 mg tablet 15 mg PO PRN venlafaxine 37.5 mg tablet 37.5 mg PO DAILY Premarin 0.625 mg/gram cream 0.3125 mg vaginal DAILY 30 Days Qty: 30 1RF Rx Instructions: Apply nightly for 4 weeks, then every other night for 2 weeks, then every 2-3 days trazodone 50 mg tablet 100 mg PO QHS Qty: 180 4RF Rx Instructions: 1-2 tabs po HS prn tramadol 50 mg tablet 50 mg PO TID PRN Patient Comments: TAKE ONE TABLET BY MOUTH EVERY 6 TO 8 HOURS NEEDED FOR MODERATE TO SEVERE PAIN MAXIMUM DAILY DOSE = 4 TABLETS HPI General Date/Time Provider Initiated Documentation: 09/30/24 10:25. HPI Narrative: 59-year-old female past medical history of chronic back pain, presents for evaluation of right ankle foot injury occurred this morning. Patient states that she was tripped by her large dog, while hiking and injured her ankle and foot. Notes swelling pain to both the ankle and foot. Denies any other injuries. She notes that she took a tablet of tramadol, unsure of the exact dose, prior to arrival and notes mild improvement of her symptoms. Related Data Home Medications ?Medication ?Instructions ?Recorded ?Confirmed meloxicam 15 mg tablet 15 mg PO PRN 09/02/23 09/30/24 venlafaxine 37.5 mg tablet 37.5 mg PO DAILY 05/16/24 09/30/24 tramadol 50 mg tablet 50 mg PO TID PRN 08/02/24 09/30/24 conjugated estrogens 0.625 mg/gram 0.3125 mg vaginal DAILY 30 days 08/23/24 09/30/24 vaginal cream (Premarin) #30 grams trazodone 50 mg tablet 100 mg (2 x 50 mg) PO QHS #180 tabs 09/20/24 09/30/24 pregabalin 25 mg capsule 50 mg PO TID PRN 09/29/24 09/30/24 Previous Rx's ?Medication ?Instructions ?Recorded conjugated estrogens 0.625 mg/gram 0.3125 mg vaginal DAILY 30 days 08/23/24 vaginal cream (Premarin) #30 grams trazodone 50 mg tablet 100 mg (2 x 50 mg) PO QHS #180 tabs 09/20/24 Allergies Allergy/AdvReac Type Severity Reaction Status Date / Time adhesive tape Allergy Unknown Skin Rash Verified 09/30/24 10:19 duloxetine (From Cymbalta) AdvReac Intermediate Nausea Verified 09/30/24 10:19 General Stated Complaint: Orthopedic ALPA: 4 Review of Systems All systems reviewed & are unremarkable except as noted in HPI and below Exam Narrative Exam Narrative: Gen: A&O NAD HEENT: NCAT, EOMI, not icteric. External ears normal. No rhinorrhea. Moist mucous membranes. Neck: Supple, full range of motion, no observable masses, No meningeal sign. Lungs: No Respiratory distress. CV: RRR, no edema. Abdomen: Soft, nondistended, No rebound tenderness. MSK: Swelling of the right lateral malleolus. DP pulses are 2+ bilaterally, there is pain to palpation of the right navicular bone, base of the fifth metatarsal. No tenderness to palpation of the right fibular head. Skin: No rashes, petechiae, lesions. Normal color per patient. Neuro: Normal Gait, Grossly intact. Psych: Appropriate for situation. Course Vital Signs Vital signs: Vital Signs Temperature 36.9 C 09/30/24 10:17 Pulse 62 09/30/24 10:17 Respiratory Rate 16 09/30/24 10:17 Blood Pressure 177/90 H 09/30/24 10:17 Pulse Oximetry 100 09/30/24 10:17 Temperature 36.9 C 09/30/24 10:17 Pulse 62 09/30/24 10:17 Respiratory Rate 16 09/30/24 10:17 Blood Pressure 177/90 H 09/30/24 10:17 Pulse Oximetry 100 09/30/24 10:17 Pain Level 8 09/30/24 10:17 Medical Decision Making Medical Records Medical records narrative: Patient presents as above. Vital signs normal other than mild hypertension. Given exam findings, concern for fracture/dislocation. With the x-rays are negative, attempting to rule out occult fracture. PFSH All Active Problems (Updated 09/29/24 @ 11:43 by Radha Borrego MD) Postlaminectomy syndrome (Acute) Arthritis of left hip (Acute) Cervicalgia (Acute) Chronic low back pain (Acute) 12/2020- s/p fusuon of l5-s1 disc in CT Insomnia secondary to chronic pain (Acute) Somatic dysfunction of sacral region (Acute) Anxiety state (Acute) Spinal stenosis (Acute) Acid reflux (Chronic) Lumbar disc herniation with radiculopathy (Acute) Dyspareunia (Acute) Encourage patient increase use of estrogen to 0.5 g daily for 2 weeks then twice weekly Medical History (Updated 09/29/24 @ 11:43 by Radha Borrego MD) Positive STACI (antinuclear antibody) (~04/25/21) 1:80, speckled pattern Herniated nucleus pulposus, L4-5 Surgical History (Updated 09/29/24 @ 11:43 by Radha Borrego MD) Bilateral carpal tunnel syndrome S/P L ECTR: 05/13/2022 H/O arthroscopy of shoulder Hx of appendectomy Hx of hand surgery finger as well Hx of tonsillectomy History of lumbar surgery X 3 , remotely to L4-L5 with second surgery being a fusion 12/2020-lumbar fusion [id number] in [place] Family History (Updated 09/29/24 @ 11:31 by Radha Borrego MD) Mother , 86 Depression Heart disease Diabetes Father , 84 Diabetes Hyperlipidemia Sister Depression Maternal Grandfather , 92 Diabetes Paternal Grandfather , 44 No problems noted. Maternal Grandmother , 84 No problems noted. Paternal Grandmother , 72 No problems noted. Other Plantar fasciitis Social History (Updated 09/29/24 @ 11:37 by Radha Borrego MD) Smoking/Tobacco Use Status: Never Second Hand Exposure: No Smoking risk assessment performed?: Yes Alcohol Intake: current Alcohol Intake frequency: a few times a month Alcohol type: wine Drug use: Never Substance use type: does not use Caregiver/Support person: No Household members: spouse Housing: house Communication Needs: None Do you need help understanding health information?: Never current occupation: Works at [employer] part-time Pets and animals: Yes Pets and animals: dog(s) and horse(s) Sexually active: Yes Do you think of yourself as: straight/heterosexual Current gender identity: female What is your relationship status?: How often do you talk on the phone with friends or family?: once per week How often do you get together with friends or relatives?: once per week How often do you attend druze or religion services?: 1-3 times per year Do you belong to any clubs or organized social groups?: no Panel score (0-1 are the most socially isolated patients): 1 Duration: 15-30 minutes/day Frequency: 3-4 times per week Mary/Uatsdin: Mandaeism Special mary needs: No Seatbelt use: always Helmet use: Yes Helmet use: always 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
[2024-09-30] MEDS: Acetaminophen 500 MG TAB 1000 MG PO (10:43)
[2024-09-30] MEDS: Ibuprofen 600 MG TAB PO (10:43)
--- NOTE | 2024-09-30 11:00 | DI.CT_ITS ---
Exam(s) CT LOWER EXTREMITY RT WO EXAM: CT LOWER EXTREMITY RT WO CLINICAL HISTORY: concern for occult fracture/ lisfranc injury. TECHNIQUE: Imaging Protocol: Axial computed tomography images with coronal and sagittal reformatted images were created and reviewed. CONTRAST MATERIAL: Noncontrast COMPARISON: CR XR ANKLE LT COMPLETE from 08/12/2021 CR,XR XR ANKLE RT COMPLETE from 09/30/2024 FINDINGS: Bones: There is a small bony fragment at the lateral malleolus which appears to represent o'clock acute avulsion fracture. There is well corticated bony density beneath the tip of the medial malleolus consistent with an old avulsion fracture noted on the 2021 exam. The talar dome appears intact. There is a plantar calcaneal spur. There is a small spur at the dorsal aspect of the talus. No osteomyelitic changes are identified. No lytic or sclerotic lesions are identified. Joints: There is no significant joint space narrowing. The ankle mortise is normally aligned. There is a small tibiotalar joint effusion. Soft Tissues: There is marked soft tissue swelling greatest around the lateral malleolus. There is thickening of the peroneus longus and brevis tendons adjacent to the posterior aspect of the lateral malleolus but no findings to suggest full-thickness tear. IMPRESSION: Acute avulsion fracture off the lateral malleolus. Thickening of the peroneal tendons likely represents peroneal tendon injury. Marked lateral soft tissue swelling. The preliminary [facility] report was reviewed. RADIATION DOSE DELIVERED: Total DLP DATA REPOSITORY: All CT scans at this facility are submitted to the National Radiology Data Registry (NRDR) Dose Index Registry (DIR) with the [employer] (A[employer]). RADIATION OPTIMIZATION: All CT scans at this facility use at least one of these dose optimization techniques: automated exposure control; mA and/or kV adjustment per patient size (includes targeted exams where dose is matched to clinical indication); or iterative reconstruction.
--- NOTE | 2024-09-30 12:30 | W.ED.GENAD ---
Discharge Plan Disposition Patient Disposition: Home Condition: Good Discharge Details Clinical Impression: Ankle injury, Foot injury Primary Care Provider: Radha Borrego ED Provider: Francisco Almanzar Recommendations for Follow Up Recommended tests to be ordered by follow up provider: Would recommends follow up MRI of ankle/foot if pain/instability continues following resolution of traumatic swelling (approx 2 weeks) Home Meds and New Rx's Prescriptions: New naproxen 250 mg tablet 250 mg PO BID PRNQty: 30 0RF acetaminophen 500 mg capsule 1,000 mg PO QID PRNQty: 60 0RF Continued pregabalin 25 mg capsule 50 mg PO TID PRN Patient Comments: TAKE UP TO 2 CAPSULES EVERY 8 HOURS PER TITRATION SCHEDULE meloxicam 15 mg tablet 15 mg PO PRN venlafaxine 37.5 mg tablet 37.5 mg PO DAILY Premarin 0.625 mg/gram cream 0.3125 mg vaginal DAILY 30 Days Qty: 30 1RF Rx Instructions: Apply nightly for 4 weeks, then every other night for 2 weeks, then every 2-3 days trazodone 50 mg tablet 100 mg PO QHS Qty: 180 4RF Rx Instructions: 1-2 tabs po HS prn tramadol 50 mg tablet 50 mg PO TID PRN Patient Comments: TAKE ONE TABLET BY MOUTH EVERY 6 TO 8 HOURS NEEDED FOR MODERATE TO SEVERE PAIN MAXIMUM DAILY DOSE = 4 TABLETS Discharge Instructions Instructions: Walking Boot Additional Instructions: Please follow-up with your primary care provider regarding your visit to the emergency department today. Be sure to discuss results of all test performed here today to include radiology, and laboratory testing as well as results for any pending cultures. As discussed, I will call you at [phone], to notify you of the formal Radiology read of your CT of the lower extremity. Should your symptoms worsen, or if you develop new concerning symptoms, please return immediately emergency department for further evaluation. As discussed, if you have pain or instability in the ankle please follow-up with your primary care provider or orthopedist for further management including further assessment for possible tendon injury. HPI General Date/Time Provider Initiated Documentation: 09/30/24 10:25. HPI Narrative: 59-year-old female past medical history of chronic back pain, presents for evaluation of right ankle foot injury occurred this morning. Patient states that she was tripped by her large dog, while hiking and injured her ankle and foot. Notes swelling pain to both the ankle and foot. Denies any other injuries. She notes that she took a tablet of tramadol, unsure of the exact dose, prior to arrival and notes mild improvement of her symptoms. Related Data Home Medications ?Medication ?Instructions ?Recorded ?Confirmed meloxicam 15 mg tablet 15 mg PO PRN 09/02/23 09/30/24 venlafaxine 37.5 mg tablet 37.5 mg PO DAILY 05/16/24 09/30/24 tramadol 50 mg tablet 50 mg PO TID PRN 08/02/24 09/30/24 conjugated estrogens 0.625 mg/gram 0.3125 mg vaginal DAILY 30 days 08/23/24 09/30/24 vaginal cream (Premarin) #30 grams trazodone 50 mg tablet 100 mg (2 x 50 mg) PO QHS #180 tabs 09/20/24 09/30/24 pregabalin 25 mg capsule 50 mg PO TID PRN 09/29/24 09/30/24 acetaminophen 500 mg capsule 1,000 mg (2 x 500 mg) PO QID PRN 09/30/24 #60 caps naproxen 250 mg tablet 250 mg PO BID PRN #30 tabs 09/30/24 Previous Rx's ?Medication ?Instructions ?Recorded conjugated estrogens 0.625 mg/gram 0.3125 mg vaginal DAILY 30 days 08/23/24 vaginal cream (Premarin) #30 grams trazodone 50 mg tablet 100 mg (2 x 50 mg) PO QHS #180 tabs 09/20/24 acetaminophen 500 mg capsule 1,000 mg (2 x 500 mg) PO QID PRN 09/30/24 #60 caps naproxen 250 mg tablet 250 mg PO BID PRN #30 tabs 09/30/24 Allergies Allergy/AdvReac Type Severity Reaction Status Date / Time adhesive tape Allergy Unknown Skin Rash Verified 09/30/24 12:33 duloxetine (From Cymbalta) AdvReac Intermediate Nausea Verified 09/30/24 12:33 General Stated Complaint: Orthopedic ALPA: 4 Review of Systems All systems reviewed & are unremarkable except as noted in HPI and below Exam Narrative Exam Narrative: Exam Narrative: Gen: A&O NAD HEENT: NCAT, EOMI, not icteric. External ears normal. No rhinorrhea. Moist mucous membranes. Neck: Supple, full range of motion, no observable masses, No meningeal sign. Lungs: No Respiratory distress. CV: RRR, no edema. Abdomen: Soft, nondistended, No rebound tenderness. MSK: Swelling of the right lateral malleolus. DP pulses are 2+ bilaterally, there is pain to palpation of the right navicular bone, base of the fifth metatarsal. No tenderness to palpation of the right fibular head. Skin: No rashes, petechiae, lesions. Normal color per patient. Neuro: Normal Gait, Grossly intact. Psych: Appropriate for situation. Course Vital Signs Vital signs: Vital Signs Temperature 36.9 C 09/30/24 10:17 Pulse 62 09/30/24 10:17 Respiratory Rate 16 09/30/24 10:17 Blood Pressure 177/90 H 09/30/24 10:17 Pulse Oximetry 100 09/30/24 10:17 Temperature 36.9 C 09/30/24 10:17 Pulse 62 09/30/24 10:17 Respiratory Rate 16 09/30/24 10:17 Blood Pressure 177/90 H 09/30/24 10:17 Pulse Oximetry 100 09/30/24 10:17 Pain Level 8 09/30/24 10:17 Medical Decision Making Patient presents as above. Vital signs are for mild hypertension otherwise within normal limits. Physical exam with obvious injury to the right ankle, with significant tenderness to the navicular bone as well as the fifth metatarsal head on examination. As such high concern for possible occult fracture and patient cannot bear weight. As such we will obtain plain films, if negative will progress to CT imaging to assess for Lisfranc versus occult fracture. X-rays by my read show no acute fracture, as such CT imaging was obtained. Given prolonged CT reads to virtual radiology, I have reviewed the films, see no obvious disruption of the metatarsal joints, dislocation or bony injury of the bones of the foot and ankle. Patient is aware this is not a final read, and it may planed that I will contact her today once the final read is available. Given that patient does not have any acute need for operative intervention, we will plan for her to discharge with follow-up with her orthopedist should symptoms not improve, or if CT imaging is found to have significant abnormality. Imaging Data Radiologic Study: My impression: No acute bony injury of the ankle Radiologic Study #2: My impression: No acute bony injury of the foot Radiologic Study #3: My impression: No obvious disruption of the ankle joint, or the arch of the foot. PFSH All Active Problems (Updated 09/30/24 @ 12:25 by Francisco Almanzar MD) Foot injury (Acute) Ankle injury (Acute) Postlaminectomy syndrome (Acute) Arthritis of left hip (Acute) Cervicalgia (Acute) Chronic low back pain (Acute) 12/2020- s/p fusuon of l5-s1 disc in CT Insomnia secondary to chronic pain (Acute) Somatic dysfunction of sacral region (Acute) Anxiety state (Acute) Spinal stenosis (Acute) Acid reflux (Chronic) Lumbar disc herniation with radiculopathy (Acute) Dyspareunia (Acute) Encourage patient increase use of estrogen to 0.5 g daily for 2 weeks then twice weekly Medical History (Updated 09/30/24 @ 12:25 by Francisco Almanzar MD) Positive STACI (antinuclear antibody) (~04/25/21) 1:80, speckled pattern Herniated nucleus pulposus, L4-5 Surgical History (Updated 09/29/24 @ 11:43 by Radha Borrego MD) Bilateral carpal tunnel syndrome S/P L ECTR: 05/13/2022 H/O arthroscopy of shoulder Hx of appendectomy Hx of hand surgery finger as well Hx of tonsillectomy History of lumbar surgery X 3 , remotely to L4-L5 with second surgery being a fusion 12/2020-lumbar fusion [id number] in [place] Family History (Updated 09/29/24 @ 11:31 by Radha Borrego MD) Mother , 86 Depression Heart disease Diabetes Father , 84 Diabetes Hyperlipidemia Sister Depression Maternal Grandfather , 92 Diabetes Paternal Grandfather , 44 No problems noted. Maternal Grandmother , 84 No problems noted. Paternal Grandmother , 72 No problems noted. Other Plantar fasciitis Social History (Updated 09/29/24 @ 11:37 by Radha Borrego MD) Smoking/Tobacco Use Status: Never Second Hand Exposure: No Smoking risk assessment performed?: Yes Alcohol Intake: current Alcohol Intake frequency: a few times a month Alcohol type: wine Drug use: Never Substance use type: does not use Caregiver/Support person: No Household members: spouse Housing: house Communication Needs: None Do you need help understanding health information?: Never current occupation: Works at [employer] part-time Pets and animals: Yes Pets and animals: dog(s) and horse(s) Sexually active: Yes Do you think of yourself as: straight/heterosexual Current gender identity: female What is your relationship status?: How often do you talk on the phone with friends or family?: once per week How often do you get together with friends or relatives?: once per week How often do you attend episcopal or methodist services?: 1-3 times per year Do you belong to any clubs or organized social groups?: no Panel score (0-1 are the most socially isolated patients): 1 Duration: 15-30 minutes/day Frequency: 3-4 times per week Mary/Presybeterian: Sabianism Special mary needs: No Seatbelt use: always Helmet use: Yes Helmet use: always Drive intox or ride w/intox 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
--- NOTE | 2024-09-30 12:38 | DI.VRAD_ITS ---
PROCEDURE INFORMATION: Exam: XR Right Ankle Exam date and time: 09/30/2024 10:56 AM Age: 59 years old Clinical indication: Injury or trauma; Other: Twisting injury TECHNIQUE: Imaging protocol: Radiologic exam of the right ankle. Views: 3 or more views. COMPARISON: CR XR FOOT RT COMPLETE 09/30/2024 10:52 AM FINDINGS: Bones/joints: There is a plantar spur. Soft tissues: There is moderate soft tissue swelling in the lateral ankle. IMPRESSION: 1. No acute fracture or dislocation. 2. Moderate soft tissue swelling of the lateral ankle and may represent a sprain. Dictated and Authenticated by: Harjeet Rodriguez MD. Orderin Jneelle Singh MD
--- NOTE | 2024-09-30 12:40 | DI.VRAD_ITS ---
PROCEDURE INFORMATION: Exam: XR Right Foot Exam date and time: 09/30/2024 10:52 AM Age: 59 years old Clinical indication: Injury or trauma; Other: Twistiing; Other: Twisting TECHNIQUE: Imaging protocol: Radiologic exam of the right foot. Views: 3 or more views. COMPARISON: CR XR FOOT RT COMPLETE 11/03/2021 10:10 AM FINDINGS: Bones/joints: There is no acute fracture or dislocation visualized. There is stable osseous density at the tip of the medial malleolus that may be sequela of old fracture. There is a plantar spur. Soft tissues: There is moderate soft tissue swelling of the lateral ankle and adjacent lateral hindfoot. IMPRESSION: 1. No acute fracture or dislocation. 2. Soft tissue swelling in the lateral ankle and lateral hindfoot may represent sprain. Dictated and Authenticated by: Harjeet Rodriguez MD. Orderin Jenelle Singh MD
[2024-09-30 12:53] VITALS: BP 87/52; PULSE 68; RESP 14
--- NOTE | 2024-09-30 13:07 | DI.VRAD_ITS ---
PROCEDURE INFORMATION: Exam: CT Right Lower Extremity Without Contrast, Ankle Exam date and time: 09/30/2024 12:00 PM Age: 59 years old Clinical indication: Injury or trauma; Other: Concern for occult fracture/ lisfranc injury TECHNIQUE: Imaging protocol: CT of the right lower extremity without contrast was performed. Exam focused on the ankle. COMPARISON: CR XR ANKLE RT COMPLETE 09/30/2024 10:56 AM FINDINGS: Bones/joints: Small osseous density at the tip the medial malleolus may represent small avulsion fracture (161 series 2). There is a subtle avulsion fracture at the anterior tip of the lateral malleolus (172 series 2). There is mild ankle joint effusion. There is swelling of the peroneus longus and brevis tendon. There plantar spur. Soft tissues: There is diffuse soft tissue swelling of the lateral ankle. IMPRESSION: 1. Small avulsion fracture at the anterior tip of the lateral malleolus, probably due to anterior talofibular ligament avulsion injury. 2. Severe soft tissue swelling of the lateral malleolus may represent sprain. There is soft tissue swelling in the lateral malleolus and lateral hindfoot with swelling of the peroneus longus and brevis tendons may represent sprain. Mild ankle joint effusion. 3. Old avulsion fracture of the tip of the medial malleolus which was present in the remote radiograph in 2021. Dictated and Authenticated by: Harjeet Rodriguez MD. Orderin Jenelle Singh MD
--- NOTE | 2024-09-30 13:49 | W.ED.FU ---
Follow Up Plan: Okay to check the patient call us for ultrasound CT results as previously discussed. However she answer. Message was left for the patient's call to discuss her findings. Only findings of note is small avulsion fracture of the distal lateral malleolus. Full report as below. PROCEDURE INFORMATION: Exam: CT Right Lower Extremity Without Contrast, Ankle L exam date and time: 09/30/2024 12:00 PM Age: 59 years old Clinical indication: Injury or trauma; Other: Concern for occult fracture/ lisfranc injury TECHNIQUE: Imaging protocol: CT of the right lower extremity without contrast was performed. Exam focused on the ankle. COMPARISON: CR XR ANKLE RT COMPLETE 09/30/2024 10:56 AM FINDINGS: Bones/joints: Small osseous density at the tip the medial malleolus may represent small avulsion fracture (161 series 2). There is a subtle avulsion fracture at the anterior tip of the lateral malleolus (172 series 2). There is mild ankle joint effusion. There is swelling of the peroneus longus and brevis tendon. There plantar spur. Soft tissues: There is diffuse soft tissue swelling of the lateral ankle. IMPRESSION: 1. Small avulsion fracture at the anterior tip of the lateral malleolus, probably due to anterior talofibular ligament avulsion injury. 2. Severe soft tissue swelling of the lateral malleolus may represent sprain. There is soft tissue swelling in the lateral malleolus and lateral hindfoot with swelling of the peroneus longus and brevis tendons may represent sprain. Mild ankle joint effusion. 3. Old avulsion fracture of the tip of the medial malleolus which was present in the remote radiograph in 2021. Thank you for allowing us to participate in the care of your patient.
== END 2024-09-30 12:53 | disposition home or self-care (01) ==
PROVIDERS: Emergency Provider General Practice; PCP Family Medicine
DX: S82.61XA Displaced fracture of lateral malleolus of right fibula, initial encounter for closed fracture (principal); W01.0XXA Fall on same level from slipping, tripping and stumbling without subsequent striking against object, initial encounter
CPT/HCPCS: 99284; 99283; 73610; 73630; 73700

== ENCOUNTER 2024-11-08 13:16 | Outpatient (CLI) | payer OTHER, SELFPAY ==
--- NOTE | 2024-11-08 09:00 | DI.RAD_ITS ---
Exam(s) XR ANKLE RT COMPLETE EXAM: XR ANKLE RT COMPLETE CLINICAL HISTORY: F/U RIGHT ANKLE INJURY. TECHNIQUE: 2D digital imaging was performed of the right ankle. Four images were obtained. AP, lateral and oblique views were obtained. COMPARISON: CT CT LOWER EXTREMITY RT WO from 09/30/2024 CR,XR XR ANKLE RT COMPLETE from 09/30/2024 FINDINGS: BONES: The lateral malleolar avulsion fracture is best appreciated on the CT scan of the ankle from 09/30/2024. No acute or healing fracture seen on the current examination. No bony destructive lesion is seen. There is a plantar calcaneal spur. JOINTS: The ankle mortise is normally aligned. SOFT TISSUE: Normal. IMPRESSION: Unremarkable radiographs of the right ankle. DATA REPOSITORY: RADIATION DOSE DELIVERED:
== END 2024-11-08 13:17 | disposition home or self-care (01) ==
LOC: DIORS 13:16
PROVIDERS: PCP Family Medicine; Visit Provider Student in an Organized Health Care Education/Training Program
DX: S93.401A Sprain of unspecified ligament of right ankle, initial encounter (principal)
CPT/HCPCS: 73610

== ENCOUNTER 2024-11-10 14:19 | Outpatient (CLI) | payer OTHER, SELFPAY ==
--- NOTE | 2024-11-10 14:15 | RT.EKG_ITS ---
APPROVED REPORT Exam: Resting ECG Reason for Exam: chest pain Patient Location: O HR:65 bpm ECG Measurements Heart Rate 65 AXIS MN 182 P 79 QRSd 80 QRS 67 QT 399 T 57 QTc 415 Conclusion Sinus rhythm...normal P axis, V-rate 50- 99 Normal Electrocardiogram
== END 2024-11-10 14:20 | disposition home or self-care (01) ==
LOC: DI.CM 14:19
PROVIDERS: PCP Family Medicine; Visit Provider Physician Assistant
DX: R07.9 Chest pain, unspecified (principal)
CPT/HCPCS: 93010

== ENCOUNTER 2024-11-10 14:57 | Emergency (ER) | payer OTHER, SELFPAY ==
--- NOTE | 2024-11-10 14:45 | RT.EKG_ITS ---
APPROVED REPORT Exam: Resting ECG Reason for Exam: heart problem Patient Location: E HR:71 bpm ECG Measurements Heart Rate 71 AXIS MA 178 P 80 QRSd 68 QRS 62 QT 363 T 58 QTc 395 Conclusion Sinus rhythm, rate 71 No interval abnormalities No STEMI No significant change from priors
[2024-11-10 14:58] VITALS: BP 119/69; PULSE 80; RESP 18; TEMP 36.4; O2SAT 98
--- NOTE | 2024-11-10 15:22 | W.ED.GENAD ---
Discharge Plan Disposition Patient Disposition: Home Condition: Stable Discharge Details Clinical Impression: Epigastric burning sensation Primary Care Provider: Radha Borrego ED Provider: Noni Gardner Home Meds and New Rx's Prescriptions: New omeprazole 20 mg capsule,delayed release(DR/EC) 20 mg PO DAILY 14 Days Qty: 14 0RF No Action pregabalin 25 mg capsule 50 mg PO TID PRN Patient Comments: TAKE UP TO 2 CAPSULES EVERY 8 HOURS PER TITRATION SCHEDULE meloxicam 15 mg tablet 15 mg PO PRN venlafaxine 37.5 mg tablet 37.5 mg PO DAILY Premarin 0.625 mg/gram cream 0.3125 mg vaginal DAILY 30 Days Qty: 30 1RF Rx Instructions: Apply nightly for 4 weeks, then every other night for 2 weeks, then every 2-3 days trazodone 50 mg tablet 100 mg PO QHS Qty: 180 4RF Rx Instructions: 1-2 tabs po HS prn tramadol 50 mg tablet 50 mg PO TID PRN Patient Comments: TAKE ONE TABLET BY MOUTH EVERY 6 TO 8 HOURS NEEDED FOR MODERATE TO SEVERE PAIN MAXIMUM DAILY DOSE = 4 TABLETS Discharge Instructions Instructions: Abdominal Pain, Adult ED Additional Instructions: You were seen in the emergency department today for evaluation of a burning sensation in your upper abdomen and chest. In our department a full physical examination performed, had an EKG that did not show any sign of heart attack and had laboratory studies that did not show sign of damage to your heart. The remainder of your laboratory studies were reassuring, you do not have any sign of electrolyte problems, anemia, and your liver and gallbladder looks healthy. Your pancreas enzyme, lipase, was very slightly elevated, but not to the level where we are concerned for acute pancreatitis. The laboratory study that looks for blood clots in the chest was also negative. You received medications for your nausea, and your first dose of Prilosec. You received a GI cocktail which significantly improved your symptoms, which is strongly suggestive of a problem with the lining of the esophagus and the stomach, condition such as gastritis, esophagitis, and peptic ulcer disease. I have provided you with a short course of Zofran to allow you to maintain your hydration. I do recommend a clear liquid diet while your symptoms are still resolving, as the Prilosec can take several days to take full effect. You can continue to use [id number] medications, I recommend Maalox or Mylanta for burning type symptoms like you are having today. As your symptoms improve, you can gradually expand your diet to include bland foods and ultimately or return to a normal diet. You should contact your primary care provider to discuss this visit and any symptoms that change, worsen, or persist. They may recommend that you have an endoscopy performed to evaluate the lining of your stomach and esophagus. If your symptoms suddenly change, worsen, or are not improved and you are not able to get a hold of your primary care provider, you can return to the emergency department for further evaluation. Please follow-up with your primary care provider in the next few days to discuss this visit and any symptoms that change, worsen, or persist. Thank you for allowing us to be part of your care. Stand Alone Forms: Work Release HPI General Mode of arrival: ambulatory. Date/Time Provider Initiated Documentation: 11/10/24 15:17. Limitations to Documentation: no limitations. Information obtained by: patient and old records reviewed. HPI Narrative: This is a 59-year-old female patient with a past medical history significant for acid reflux, spinal fusion, presenting for evaluation of chest pain and nausea with vomiting. The patient reports that 3 nights ago she indulged in some sweet and richer foods that are typical for her, and had what she thought was heartburn with epigastric discomfort. She treated this with sbnl-dhw-vspebnw medications including Tums, and states that the next night she continued to have discomfort, with belching, abdominal fullness, and nausea with vomiting. Last night she was woken from sleep with a heavy the sensation across her chest, that radiated across her bilateral arms. She has some radiation of the pain to between her shoulder blades, states that her chest discomfort has improved slightly but not resolved entirely. She states that she remains with some nausea and vomiting, went to her primary care/urgent care clinic and was counseled to present to the emergency department for cardiac workup. The patient has no personal cardiac history, took famotidine and Zofran this morning but otherwise no new medications, denies shortness of breath, diarrhea, dysuria. Related Data Home Medications ?Medication ?Instructions ?Recorded ?Confirmed meloxicam 15 mg tablet 15 mg PO PRN 09/02/23 11/10/24 venlafaxine 37.5 mg tablet 37.5 mg PO DAILY 05/16/24 11/10/24 tramadol 50 mg tablet 50 mg PO TID PRN 08/02/24 11/10/24 conjugated estrogens 0.625 mg/gram 0.3125 mg vaginal DAILY 30 days 08/23/24 11/10/24 vaginal cream (Premarin) #30 grams trazodone 50 mg tablet 100 mg (2 x 50 mg) PO QHS #180 tabs 09/20/24 11/10/24 pregabalin 25 mg capsule 50 mg PO TID PRN 09/29/24 11/10/24 omeprazole 20 mg capsule,delayed 20 mg PO DAILY 14 days #14 caps 11/10/24 release Previous Rx's ?Medication ?Instructions ?Recorded conjugated estrogens 0.625 mg/gram 0.3125 mg vaginal DAILY 30 days 08/23/24 vaginal cream (Premarin) #30 grams trazodone 50 mg tablet 100 mg (2 x 50 mg) PO QHS #180 tabs 09/20/24 omeprazole 20 mg capsule,delayed 20 mg PO DAILY 14 days #14 caps 11/10/24 release Allergies Allergy/AdvReac Type Severity Reaction Status Date / Time adhesive tape Allergy Unknown Skin Rash Verified 11/10/24 15:02 duloxetine (From Cymbalta) AdvReac Intermediate Nausea Verified 11/10/24 15:02 General Stated Complaint: Chest Pain ALPA: 3 Exam Narrative Exam Narrative: Gen: Awake and alert, in no apparent distress HEENT: Non-icteric sclera Neck: Supple Lungs: No apparent respiratory distress, normal respiratory effort. Lung sounds clear and equal bilaterally without wheezes, rhonchi, rales CV: Appears well perfused, heart with regular rate and rhythm, strong distal pulses, no murmurs auscultated Abdomen: Non-distended, soft, nontender to palpation without rigidity, rebound, guarding MSK: Moves 4 extremities without apparent limitation in ROM. No peripheral edema, no unilateral calf swelling or tenderness Skin: Visualized skin without rashes, cyanosis. Neuro: Normal Gait, no obvious focal deficits or facial asymmetry. Speaks in full, clear sentences. Psych: Appropriate for situation. Course Vital Signs Vital signs: Vital Signs Temperature 36.4 C 11/10/24 14:58 Pulse 80 11/10/24 14:58 Respiratory Rate 18 11/10/24 14:58 Blood Pressure 119/69 11/10/24 14:58 Pulse Oximetry 98 11/10/24 14:58 Temperature 36.4 C 11/10/24 14:58 Pulse 80 11/10/24 14:58 Respiratory Rate 18 11/10/24 14:58 Respiratory Effort Normal 11/10/24 15:16 Respiratory Depth Normal 11/10/24 15:16 Respiratory Pattern Normal 11/10/24 15:16 Blood Pressure 119/69 11/10/24 14:58 Pulse Oximetry 98 11/10/24 14:58 Pain Level 5 11/10/24 14:58 Medical Decision Making This is a 59-year-old female patient presenting for evaluation of chest heaviness and nausea with vomiting and epigastric discomfort for the last 3 days. My differential includes but is not limited to ACS including STEMI, NSTEMI, unstable angina, certainly considered arrhythmia, pericarditis/myocarditis, aortic pathology. Considered pulmonary abnormalities including pneumonia, bronchitis, pleural effusion, pulmonary edema, reactive airway disease, pneumothorax. The patient is without tachycardia, hypoxia, or a pleuritic component to his pain to significantly increase my concern for pulmonary embolism. The patient does have significant GI symptoms GI symptoms, and I considered Boerhaave's, esophagitis, peptic ulcer disease, pancreatitis, cholecystitis. Considered musculoskeletal pathologies including costochondritis, chest wall pain. EKG was obtained, showing normal sinus rhythm without evidence of ischemia, interval abnormality, or ectopy. No significant changes from the EKG obtained at urgent care. We will obtain labs to include CBC, CMP, magnesium, troponin, lipase, D-dimer. I will obtain a chest x-ray. We will provide the patient with aspirin, nitro, Zofran, and Tylenol for initial symptomatic management. - The nitroglycerin did not improve her pain at all, and we provided her with a GI cocktail with immediate improvement in her burning chest and epigastric pain. I independently interpreted the laboratory studies, which show no significant leukocytosis, anemia, or thrombocytopenia. The chemistry panel is without evidence of electrolyte abnormality, kidney dysfunction, or liver injury. Troponin was negative and without interval increase in 1 hour delta recheck. Her lipase is very slightly elevated but below 3 times the upper limit of normal which would significantly increase my concern for pancreatitis in this patient without exquisite epigastric tenderness to palpation. D-dimer was negative by years criteria. - The patient did require a second dose of Zofran but then was able to tolerate oral intake. Her repeat abdominal examination was benign. I do not see an indication at this time to proceed with CT imaging, I am less suspicious for peptic ulcer disease, gastritis, esophagitis and similar etiologies. I recommended that the patient initiate omeprazole, first dose given today and prescription sent to the pharmacy. She will reach out to her primary care provider to discuss the role of endoscopy in her for future workup and management. A short course of Zofran was sent home to allow her to maintain her hydration and she was counseled on clear liquid and bland diets, good hydration, and conservative pain management. At this time, the patient has had a full medical evaluation and is safe for discharge to home. They are hemodynamically stable, ambulatory, and tolerating PO. They are understanding of the follow-up plan and return precautions. They left our facility without incident. Noni Gardner MD [facility] All Active Problems (Updated 11/10/24 @ 17:42 by Noni Gardner MD) Epigastric burning sensation (Acute) Right ankle sprain (Acute 09/30/24) Postlaminectomy syndrome (Acute) Arthritis of left hip (Acute) Cervicalgia (Acute) Chronic low back pain (Acute) 12/2020- s/p fusuon of l5-s1 disc in CT Insomnia secondary to chronic pain (Acute) Somatic dysfunction of sacral region (Acute) Anxiety state (Acute) Spinal stenosis (Acute) Acid reflux (Chronic) Lumbar disc herniation with radiculopathy (Acute) Dyspareunia (Acute) Encourage patient increase use of estrogen to 0.5 g daily for 2 weeks then twice weekly Medical History Positive STACI (antinuclear antibody) (~04/25/21) 1:80, speckled pattern Herniated nucleus pulposus, L4-5 Surgical History Bilateral carpal tunnel syndrome S/P L ECTR: 05/13/2022 H/O arthroscopy of shoulder Hx of appendectomy Hx of hand surgery finger as well Hx of tonsillectomy History of lumbar surgery X 3 , remotely to L4-L5 with second surgery being a fusion 12/2020-lumbar fusion [id number] in [place] Family History Mother , 86 Depression Heart disease Diabetes Father , 84 Diabetes Hyperlipidemia Sister Depression Maternal Grandfather , 92 Diabetes Paternal Grandfather , 44 No problems noted. Maternal Grandmother , 84 No problems noted. Paternal Grandmother , 72 No problems noted. Other Plantar fasciitis Social History Smoking/Tobacco Use Status: Never Second Hand Exposure: No Smoking risk assessment performed?: Yes Alcohol Intake: former Drug use: Never Substance use type: does not use Caregiver/Support person: No Household members: spouse Housing: house Communication Needs: None Do you need help understanding health information?: Never current occupation: Works at the [employer] part-time Pets and animals: Yes Pets and animals: dog(s) and horse(s) Sexually active: Yes Do you think of yourself as: straight/heterosexual Current gender identity: female What is your relationship status?: How often do you talk on the phone with friends or family?: once per week How often do you get together with friends or relatives?: once per week How often do you attend rastafarian or latter-day services?: 1-3 times per year Do you belong to any clubs or organized social groups?: no Panel score (0-1 are the most socially isolated patients): 1 Duration: 15-30 minutes/day Frequency: 3-4 times per week Mary/Hoahaoism: Jew Special mary needs: No Seatbelt use: always Helmet use: Yes Helmet use: always Drive intox or ride w/intox carrier driver: No Do you feel safe at home: Yes Do you feel safe in your relationship?: Yes Female Reproductive History Menstrual Menopause type: natural Date of menopause: 02/15/17 History History 0 Para Hx # Term Pregnancies Multiple births Hx # Pregnancies Ectopic pregnancies AB induced Hx Number of Living Children AB spontaneous
[2024-11-10 15:27] LABS: Abs Immature Grans 0.02 10^3/uL (0.0-0.06); HCT 41.6 % (36.0-46.0); HGB 13.9 g/dL (11.2-15.7); Immature Grans % 0.3 %; MCH 31.7 pg (27.0-33.0); MCHC 33.4 % (32.0-36.0); MCV 95 fL (80-95); MPV 8.4 fL (8.0-11.0); Platelet Count 299 10^3/uL (130-400); RBC 4.39 10^6/uL (3.93-5.22); RDW 12.4 % (11.7-14.6); RDW-SD 42.9 fL; WBC 7.98 10^3/uL (4.4-10.8)
--- NOTE | 2024-11-10 15:30 | DI.RAD_ITS ---
Exam(s) XR CHEST 2V PA LATERAL EXAM: XR CHEST 2V PA LATERAL CLINICAL HISTORY: CP, N/V TECHNIQUE: 2D digital imaging was performed of the chest. Images were obtained. PA and lateral views were obtained. COMPARISON: No exams were available for comparison FINDINGS: MEDIASTINUM: Normal. HEART: Normal. PULMONARY VASCULATURE: Normal. LUNGS: Clear. PLEURAL SPACE: No pleural effusion or pneumothorax. BONE:Within normal limits for the patient's age. OTHER FINDINGS:Normal. IMPRESSION: No acute pulmonary findings. DATA REPOSITORY: RADIATION DOSE DELIVERED:
[2024-11-10] MEDS: nitroGLYcerin 0.4 MG TAB SL (15:50)
[2024-11-10] MEDS: Ondansetron 4 MG/2 ML VIAL IVP ×2 (15:50→17:05)
[2024-11-10] MEDS: ACETAMINOPHEN 1,000 MG/100 ML BAG 400 MG IVPB (15:50)
[2024-11-10] MEDS: Aspirin 81 MG CHEW 324 MG CH (15:50)
[2024-11-10 15:56] LABS: ALT 26 U/L (14-59); AST 19 U/L (15-37); Albumin 3.8 g/dL (3.4-5.0); Alkaline Phosphatase 50 U/L (46-116); Anion Gap 7.0 mmol/L (3-11); BUN 19 mg/dL (7-18); Bilirubin, Total 0.3 mg/dL (0.2-1.0); CO2 31.0 mmol/L (21.0-32.0); Calcium 8.8 mg/dL (8.5-10.1); Chloride 102 mmol/L (98-107); Estimated GFR 85.35 (mL/min/1.73m2); Glucose 104 mg/dL (74-106); Lipase 103 U/L (<78); Magnesium 2.0 mg/dL (1.8-2.4); Potassium 3.7 mmol/L (3.5-5.1); Sodium 140 mmol/L (136-145); Total Protein 7.1 g/dL (6.4-8.2); Troponin I 4 ng/L (<or=51)
[2024-11-10 16:15] LABS: D-Dimer 561 ng/mlFEU (<500)
[2024-11-10] MEDS: MYLANTA 30 ML, LIDOCAINE 2% VISCOUS UD 15 ML PO (16:26)
[2024-11-10 16:36] LABS: Troponin I < 4 ng/L (<or=51)
[2024-11-10] MEDS: Omeprazole 20 MG CAPCR PO (17:05)
[2024-11-10] MEDS: Ondansetron O.D.T. 4 MG TABEF, 3 TABS/BTL PO (17:43)
== END 2024-11-10 17:51 | disposition home or self-care (01) ==
PROVIDERS: Emergency Provider Emergency Medicine; PCP Family Medicine
DX: R10.13 Epigastric pain (principal)
CPT/HCPCS: 36415; 80053; 83690; 93005; 96374; 96375; 96376; 99284; 71046; 83735; 84484; 85025; 85379; 93010; J0131; J2405

== ENCOUNTER 2024-11-10 23:39 | Emergency (ER) | payer OTHER, SELFPAY ==
[2024-11-10 23:43] VITALS: BP 121/55; PULSE 80; RESP 20; O2SAT 98
[2024-11-10 23:46] VITALS: BP 121/55; PULSE 80; RESP 20; O2SAT 98
--- NOTE | 2024-11-11 | DI.CT_ITS ---
Exam(s) CT ABDOMEN PELVIS W EXAM: CT ABDOMEN PELVIS W CLINICAL HISTORY: increased abd pain/bloating. TECHNIQUE: Imaging Protocol: Axial computed tomography images with coronal and sagittal reformatted images were created and reviewed CONTRAST MATERIAL: Intravenous: Omnipaque 350 Contrast volume:75 ml Oral: no COMPARISON: CT CT CHEST PE CTA from 03/28/[address] PELVIC WO from 07/22/2024 FINDINGS: ABDOMEN and PELVIS: Lung Bases: No acute findings. Liver: Normal density. No suspicious mass. Gallbladder and biliary tract: No radiodense calculus. No wall thickening or pericholecystic fluid. No biliary dilation. Pancreas: Normal density. No abnormal calcifications or inflammatory process. No evidence of mass. Spleen: Normal. Kidneys: Normal size, contour and axis. No radiodense stones. No obstructive uropathy. No suspicious masses seen. Adrenal glands: No masses seen. Vasculature: Abdominal aorta non-dilated. Soft tissues: Unremarkable. Bladder: No gross wall thickening. No calculi.No focal mass. Bowel: There is abnormal wall thickening and edema of the body and antrum of the stomach. There is a question of an area of ulceration versus undulation of the mucosa. There is no evidence of perforation. No focal mass. Obstruction. Appendix is not seen. There is stool noted throughout the colon which could indicate constipation. Peritoneal cavity: No ascites. No focal collection. No mesenteric inflammatory response. No free air. Bones: Postsurgical changes with disc spacer at L5-S1. Disc bulging at L4-5. Reproductive organs: Small uterine fibroids. Lymph nodes: Small lymph nodes noted beneath the level of the stomach consistent with reactive lymph nodes. IMPRESSION:: Abnormal wall thickening and and edema of the stomach could indicate gastritis. No evidence of perforated ulcer. The preliminary [facility] report was reviewed. RADIATION DOSE DELIVERED: Total DLP DATA REPOSITORY: All CT scans at this facility are submitted to the National Radiology Data Registry (NRDR) Dose Index Registry (DIR) with the [employer] (A[employer]). RADIATION OPTIMIZATION: All CT scans at this facility use at least one of these dose optimization techniques: automated exposure control; mA and/or kV adjustment per patient size (includes targeted exams where dose is matched to clinical indication); or iterative reconstruction.
--- NOTE | 2024-11-11 00:17 | W.ED.GENAD ---
Discharge Plan Disposition Patient Disposition: Home Condition: Good Discharge Details Clinical Impression: Abdominal pain Primary Care Provider: Radha Borrego ED Provider: Thom Villalba [facility] and New Rx's Prescriptions: New omeprazole 40 mg capsule,delayed release(DR/EC) 40 mg PO DAILY Qty: 30 0RF famotidine 20 mg tablet 20 mg PO BID Qty: 20 0RF Continued pregabalin 25 mg capsule 50 mg PO TID PRN Patient Comments: TAKE UP TO 2 CAPSULES EVERY 8 HOURS PER TITRATION SCHEDULE venlafaxine 37.5 mg tablet 37.5 mg PO DAILY Premarin 0.625 mg/gram cream 0.3125 mg vaginal DAILY 30 Days Qty: 30 1RF Rx Instructions: Apply nightly for 4 weeks, then every other night for 2 weeks, then every 2-3 days trazodone 50 mg tablet 100 mg PO QHS Qty: 180 4RF Rx Instructions: 1-2 tabs po HS prn tramadol 50 mg tablet 50 mg PO TID PRN Patient Comments: TAKE ONE TABLET BY MOUTH EVERY 6 TO 8 HOURS NEEDED FOR MODERATE TO SEVERE PAIN MAXIMUM DAILY DOSE = 4 TABLETS Discontinued meloxicam 15 mg tablet 15 mg PO PRN omeprazole 20 mg capsule,delayed release(DR/EC) 20 mg PO DAILY 14 Days Qty: 14 0RF Discharge Instructions Instructions: Abdominal Pain, Adult ED Additional Instructions: You were seen for recurrent abdominal pain. Your repeat abdominal labs remain reassuring. CT of your abdomen and pelvis suggest the possibility of a gastric ulcer. Your symptoms improved to some degree with IV famotidine and a repeat GI cocktail. Given the possibility of an ulcer I would like you to take omeprazole 40 mg once a day. We will also place you on famotidine 20 mg twice a day for the next 10 days. Please follow-up with primary care this coming week. You may potentially need an endoscopy at some point. You should avoid alcohol, tobacco, caffeine and nonsteroidals which includes your meloxicam which you should stop taking. Return to ED for any new or worsening pain, vomiting of blood, black stool, chest pain, shortness of breath, syncope, other concerns. Referrals: Radha Borrego MD [Primary Care Provider, Medicine] Discharge Data Discharge Date/Time-TO BE ENTERED AT DEPARTURE: 11/11/24 02:40 HPI General Mode of arrival: ambulatory. Date/Time Provider Initiated Documentation: 11/10/24 23:53. Limitations to Documentation: no limitations. Information obtained by: patient, RN notes reviewed and old records reviewed. HPI Narrative: Patient returns to ED now more with abdominal pain and chest pain. She was seen earlier in the day after being referred to ED because of chest pain. Her workup was unrevealing with normal EKG, negative delta troponin, negative D-dimer and resolution of symptoms with a GI cocktail. She was felt to be chest pain related to reflux and started on omeprazole. She felt fine at discharge. This evening began to have recurrence of pain but is now also feeling abdominal bloating as well as discomfort in the lower abdomen. She has a little nausea but no vomiting. She has taken Maalox at home with no relief. Came back in to ED now more so with abdominal pain and chest pain. Related Data Home Medications ?Medication ?Instructions ?Recorded ?Confirmed venlafaxine 37.5 mg tablet 37.5 mg PO DAILY 05/16/24 11/10/24 tramadol 50 mg tablet 50 mg PO TID PRN 08/02/24 11/10/24 conjugated estrogens 0.625 mg/gram 0.3125 mg vaginal DAILY 30 days 08/23/24 11/10/24 vaginal cream (Premarin) #30 grams trazodone 50 mg tablet 100 mg (2 x 50 mg) PO QHS #180 tabs 09/20/24 11/10/24 pregabalin 25 mg capsule 50 mg PO TID PRN 09/29/24 11/10/24 famotidine 20 mg tablet 20 mg PO BID #20 tabs 11/11/24 omeprazole 40 mg capsule,delayed 40 mg PO DAILY #30 caps 11/11/24 release Previous Rx's ?Medication ?Instructions ?Recorded conjugated estrogens 0.625 mg/gram 0.3125 mg vaginal DAILY 30 days 08/23/24 vaginal cream (Premarin) #30 grams trazodone 50 mg tablet 100 mg (2 x 50 mg) PO QHS #180 tabs 09/20/24 famotidine 20 mg tablet 20 mg PO BID #20 tabs 11/11/24 omeprazole 40 mg capsule,delayed 40 mg PO DAILY #30 caps 11/11/24 release Allergies Allergy/AdvReac Type Severity Reaction Status Date / Time adhesive tape Allergy Unknown Skin Rash Verified 11/10/24 15:02 duloxetine (From Cymbalta) AdvReac Intermediate Nausea Verified 11/10/24 15:02 General Stated Complaint: Abd Prob ALPA: 3 Exam Narrative Exam Narrative: Const: WDWN female in NAD. VS per triage. HEENT: NC/AT. Normal facial exam. Neck: Supple. Trachea midline. Lungs: Normal respiratory effort. Lungs are clear. Cor: RRR without murmur. Good radial pulses. GI: Soft/ND. Mild epigastric tenderness. Neuro: A+O x 3. Normal speech, mentation, gait. Cranial nerves II - XII grossly intact. No gross motor or sensory deficit. Course Vital Signs Vital signs: Vital Signs Pulse 80 11/10/24 23:43 Respiratory Rate 20 11/10/24 23:43 Blood Pressure 121/55 L 11/10/24 23:43 Pulse Oximetry 98 11/10/24 23:43 Pulse 80 11/10/24 23:46 Respiratory Rate 20 11/10/24 23:46 Blood Pressure 121/55 L 11/10/24 23:46 Blood Pressure Position Sitting 11/10/24 23:46 Pulse Oximetry 98 11/10/24 23:46 Oxygen Delivery Method Room Air 11/10/24 23:46 Oxygen Flow Rate 0 11/10/24 23:46 Medical Decision Making Patient returns to ED with abdominal complaints and does have some mild epigastric tenderness and looks uncomfortable. Here earlier with chest pain workup that was negative and thought likely related to reflux. Her abdominal labs looked fine yesterday. Will recheck abdominal labs now as well as obtain abdominal pelvic CT scan since she has more discomfort, bloating, lower abdominal pain. Will treat with Maalox and lidocaine orally and IV famotidine. Repeat labs continue to look fine. No change in white count, liver function. CT scan of the abdomen pelvis suggestive of an anterior gastric antral ulcer though could be simple undulation of a collapsed distal lumen. Patient does feel better though no complete resolution of symptoms. Will plan to increase the omeprazole to 40 mg daily and start famotidine 20 mg twice daily at least for the next week. She will need to follow-up with primary care and likely needs endoscopy. She is given return precautions and is comfortable with plan and discharge. Lab Data Lab results reviewed: Yes I reviewed the patient's lab results. Lab results narrative: See MDM PFSH All Active Problems Abdominal pain (Acute) Epigastric burning sensation (Acute) Right ankle sprain (Acute 09/30/24) Postlaminectomy syndrome (Acute) Arthritis of left hip (Acute) Cervicalgia (Acute) Chronic low back pain (Acute) 12/2020- s/p fusuon of l5-s1 disc in CT Insomnia secondary to chronic pain (Acute) Somatic dysfunction of sacral region (Acute) Anxiety state (Acute) Spinal stenosis (Acute) Acid reflux (Chronic) Lumbar disc herniation with radiculopathy (Acute) Dyspareunia (Acute) Encourage patient increase use of estrogen to 0.5 g daily for 2 weeks then twice weekly Medical History Positive STACI (antinuclear antibody) (~04/25/21) 1:80, speckled pattern Herniated nucleus pulposus, L4-5 Surgical History Bilateral carpal tunnel syndrome S/P L ECTR: 05/13/2022 H/O arthroscopy of shoulder Hx of appendectomy Hx of hand surgery finger as well Hx of tonsillectomy History of lumbar surgery X 3 , remotely to L4-L5 with second surgery being a fusion 12/2020-lumbar fusion [id number] in [place] Family History Mother , 86 Depression Heart disease Diabetes Father , 84 Diabetes Hyperlipidemia Sister Depression Maternal Grandfather , 92 Diabetes Paternal Grandfather , 44 No problems noted. Maternal Grandmother , 84 No problems noted. Paternal Grandmother , 72 No problems noted. Other Plantar fasciitis Social History Smoking/Tobacco Use Status: Never Second Hand Exposure: No Smoking risk assessment performed?: Yes Alcohol Intake: former Drug use: Never Substance use type: does not use Caregiver/Support person: No Household members: spouse Housing: house Communication Needs: None Do you need help understanding health information?: Never current occupation: Works at [employer] part-time Pets and animals: Yes Pets and animals: dog(s) and horse(s) Sexually active: Yes Do you think of yourself as: straight/heterosexual Current gender identity: female What is your relationship status?: How often do you talk on the phone with friends or family?: once per week How often do you get together with friends or relatives?: once per week How often do you attend uatsdin or catholic services?: 1-3 times per year Do you belong to any clubs or organized social groups?: no Panel score (0-1 are the most socially isolated patients): 1 Duration: 15-30 minutes/day Frequency: 3-4 times per week Mary/Christianity: [employer] Special mary needs: No Seatbelt use: always Helmet use: Yes Helmet use: always Drive 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
[2024-11-11 00:52] LABS: Abs Immature Grans 0.02 10^3/uL (0.0-0.06); HCT 43.9 % (36.0-46.0); HGB 14.7 g/dL (11.2-15.7); Immature Grans % 0.2 %; MCH 31.6 pg (27.0-33.0); MCHC 33.5 % (32.0-36.0); MCV 94 fL (80-95); MPV 8.5 fL (8.0-11.0); Platelet Count 305 10^3/uL (130-400); RBC 4.65 10^6/uL (3.93-5.22); RDW 12.4 % (11.7-14.6); RDW-SD 42.9 fL; WBC 9.16 10^3/uL (4.4-10.8)
[2024-11-11] MEDS: FAMOTIDINE 20 MG in Normal Saline 100 ML 400 MG IVPB (00:52)
[2024-11-11] MEDS: MYLANTA 30 ML, LIDOCAINE 2% VISCOUS UD 15 ML PO (00:53)
[2024-11-11] MEDS: Normal Saline - Diluent 50 ML VIAL IJ (01:02)
[2024-11-11 01:03] LABS: Lipase 89 U/L (<78)
[2024-11-11] MEDS: Omnipaque 350 MG/ML 100 ML BTL IJ (01:03)
[2024-11-11 01:09] LABS: ALT 25 U/L (14-59); AST 20 U/L (15-37); Albumin 4.2 g/dL (3.4-5.0); Alkaline Phosphatase 57 U/L (46-116); Anion Gap 9.9 mmol/L (3-11); BUN 16 mg/dL (7-18); Bilirubin, Total 0.5 mg/dL (0.2-1.0); CO2 29.1 mmol/L (21.0-32.0); Calcium 9.0 mg/dL (8.5-10.1); Chloride 100 mmol/L (98-107); Estimated GFR 65.30 (mL/min/1.73m2); Glucose 122 mg/dL (74-106); Potassium 3.3 mmol/L (3.5-5.1); Sodium 139 mmol/L (136-145); Total Protein 7.7 g/dL (6.4-8.2)
--- NOTE | 2024-11-11 01:45 | DI.VRAD_ITS ---
PROCEDURE INFORMATION: Exam: CT Abdomen And Pelvis With Contrast Exam date and time: 11/11/2024 12:24 AM Age: 59 years old Clinical indication: Other: Increased abd pain/ bloating TECHNIQUE: Imaging protocol: Computed tomography of the abdomen and pelvis with contrast. Contrast material: 350; Contrast volume: 75 ml; Contrast route: INTRAVENOUS (IV); COMPARISON: CT PELVIC WO 07/22/2024 8:57 AM FINDINGS: Liver: Normal. No mass. Gallbladder and biliary ducts: Normal. No calcified stones. No ductal dilation. Pancreas: Unremarkable. Spleen: Normal. Adrenal glands: Normal. No mass. Kidneys and ureters: Normal. No hydronephrosis. Stomach and bowel: No pneumatosis or portal/mesenteric venous gas. Equivocal anterior gastric antral ulcer. I suspect this is just normal undulation of the partially gas-filled and collapsed distal gastric lumen with associated wall prominence due to underdistention; however, there are a few mildly enlarged adjacent lymph nodes (image 32/series 8) which are nonspecific and potentially clinically insignificant but which can be seen in the presence of gastric ulcer. No intestinal wall thickening or intestinal obstruction. Appendix: Normal appendix. Intraperitoneal space: No pneumoperitoneum or abscess. Vasculature: See Stomach and bowel finding. Lymph nodes: See Stomach and bowel finding. Urinary bladder: Unremarkable as visualized. Reproductive: Fibroid uterus. Bones/joints: Unremarkable. No acute fracture. Soft tissues: Unremarkable. IMPRESSION: 1. Fibroid uterus. 2. Equivocal anterior gastric antral ulcer. I suspect this is just normal undulation of the partially gas-filled and collapsed distal gastric lumen with associated wall prominence due to underdistention; however, there are a few mildly enlarged adjacent lymph nodes (image 32/series 8) which are nonspecific and potentially clinically insignificant but which can be seen in the presence of gastric ulcer. Dictated and Authenticated by: Krzysztof Zarco MD. Orderin Deejay Tomas MD
[2024-11-11 02:37] VITALS: BP 106/66; PULSE 65; RESP 18; O2SAT 95
== END 2024-11-11 02:40 | disposition home or self-care (01) ==
PROVIDERS: Emergency Provider Emergency Medicine; PCP Family Medicine
DX: R10.13 Epigastric pain (principal)
CPT/HCPCS: 80053; 83690; 96365; 99285; 74177; 85025; 99284; J3490